=== PATIENT | male | born 1950 | race Caucasian/White ===

== ENCOUNTER → 2020-12-21 10:45 | Outpatient (BNVA) | payer MEDICARE, OTHER, SELFPAY | PROVIDERS: PCP Internal Medicine; Visit Provider Hospitalist | DX: J45.909 Unspecified asthma, uncomplicated (principal); J30.9 Allergic rhinitis, unspecified; R93.89 Abnormal findings on diagnostic imaging of other specified body structures | CPT/HCPCS: 99202 ==

== ENCOUNTER → 2022-04-24 10:54 | Outpatient (BNVA) | payer MEDICARE, SELFPAY | PROVIDERS: PCP Internal Medicine; Visit Provider Hospitalist | DX: J45.909 Unspecified asthma, uncomplicated (principal); J30.9 Allergic rhinitis, unspecified; R93.89 Abnormal findings on diagnostic imaging of other specified body structures; Z79.899 Other long term (current) drug therapy | CPT/HCPCS: 99212 ==

== ENCOUNTER 2022-10-22 11:09 | Outpatient (REF) | payer MEDICARE, SELFPAY ==
--- NOTE | ~2022-10-22 | XR_ITS ---
EXAMINATION: XR CHEST CLINICAL INFORMATION: Abnormal chest findings COMPARISON: None TECHNIQUE: 2 views of the chest were obtained. FINDINGS: The lungs are well-expanded and clear. The heart size and pulmonary vascularity is normal. There is mild spondylosis of dorsal spine. No aggressive lytic or sclerotic process seen. XR/XR chest 2V IMPRESSION: Unremarkable chest exam.
== END 2022-10-22 11:10 | disposition home or self-care (01) ==
LOC: HO.XRAY 11:09
PROVIDERS: PCP Internal Medicine; Visit Provider Hospitalist
DX: R93.89 Abnormal findings on diagnostic imaging of other specified body structures (principal); J45.909 Unspecified asthma, uncomplicated
CPT/HCPCS: 71046

== ENCOUNTER 2022-10-27 09:44 | Outpatient (REF) | payer MEDICARE, SELFPAY ==
--- NOTE | 2022-10-27 11:19 | PFT_ITS ---
Forced vital capacity 105%, FEV1 94%, FEV1 over FVC ratio is 66. ZGT12-55 69% and MVV 87%. Post bronchodilator therapy, there is no significant change. NIT28-10 is actually somewhat decreased. Total lung capacity 99%, residual volume 94%. Diffusion capacity 75%. CONCLUSION: Very mild degree of obstructive airway disorder. No positive response to bronchodilator therapy. Clinical correlation is recommended. MD HERNANDO Cheema/NIRMAL / [id number]
== END 2022-10-27 09:45 | disposition home or self-care (01) ==
LOC: HO.RESP 09:44
PROVIDERS: PCP Internal Medicine; Visit Provider Hospitalist
DX: J45.909 Unspecified asthma, uncomplicated (principal)
CPT/HCPCS: 94060; 94727; 94729; 99212

== ENCOUNTER 2023-07-30 07:27 | Day surgery (SDC) | payer MEDICARE, SELFPAY ==
--- NOTE | 2023-07-29 13:15 | HO.ANESPROP2 ---
Documented by User: Rula Lloyd NP 07/29/23 13:16 HPI - Anesthesia Eval Consult details Narrative: 72yo M for Bronchoscopy Fiberoptic PMFSH Active Problems Active Problems: All Active Problems (Updated 10/27/22 @ 20:26 by Jeff Salazar MD) Abnormal chest x-ray (Acute) Chronic allergic rhinitis (Acute) Asthma (Acute) Past Medical History Medical History Abnormal chest x-ray Chronic allergic rhinitis Asthma Surgical History Surgical History (Updated 07/30/23 @ 09:15 by Melissa Dangelo MD) Cataract Colon cancer Inguinal hernia H/O arthroscopic knee surgery Social History Social History Patient Tobacco Use Status: Former Tobacco user Tobacco use type: Cigarette Years Smoked: 20 years Second Hand Smoke Exposure: No Use of substances other than those prescribed or required for medical reasons: No Are you DNR?: No Advance Directives: No Advance Directives Information Provided: Yes Advance Directives on File: No Meds Allergies Allergy/AdvReac Type Severity Reaction Status Date / Time SAI Inhibitors Allergy Severe Rash Verified 10/27/22 11:13 celecoxib [From Celebrex] Allergy Severe Rash Verified 10/27/22 11:13 ciprofloxacin Allergy Severe Rash/Dermat Verified 10/27/22 11:13 itis/Nausea /Vomiting codeine Allergy Severe Vomiting Verified 10/27/22 11:13 doxycycline Allergy Severe Nausea and Verified 10/27/22 11:13 Vomiting lidocaine Allergy Severe Red Rash Verified 10/27/22 11:13 and Hives mold Allergy Severe Rash Verified 10/27/22 11:13 prednisone Allergy Severe Rash Verified 10/27/22 11:13 shellfish derived Allergy Severe Fever/Vomit Verified 10/27/22 11:13 ing Sulfa (Sulfonamide Allergy Severe Rash/Dermat Verified 10/27/22 11:13 Antibiotics) itis ragweed pollen Allergy Intermediate Hives Verified 10/27/22 11:13 Home Medications Medication Instructions Recorded Confirmed Last Taken Type amlodipine 5 mg tablet 5 mg PO DAILY 12/21/20 12/21/20 Unknown History cimetidine 300 mg tablet 300 mg PO QID 12/21/20 12/21/20 Unknown History cyclosporine 0.05 % eye drops in a 1 drp ophthalmic (eye) Q12H 12/21/20 12/21/20 Unknown History dropperette (Restasis) fluticasone propionate 50 1 spray intranasal BID 12/21/20 12/21/20 Unknown History mcg/actuation nasal spray,suspension montelukast 10 mg tablet 10 mg PO DAILY 12/21/20 12/21/20 Unknown History losartan 25 mg tablet 25 mg PO DAILY 10/27/22 Unknown History Exam Exam Date and Time: July 29, 2023 1315 Narrative Narrative: PFT 10/2022 CONCLUSION:? Very mild degree of obstructive airway disorder. ? No positive response to bronchodilator therapy. ? Clinical correlation is recommended. Assessment and Plan Assessment Anesthesia Assessment: Chart Reviewed Documented by User: Melissa Dangelo MD 07/30/23 09:18 PMFSH Active Problems Active Problems: All Active Problems (Updated 07/30/23 @ 08:50 by Melissa Dangelo MD) Abnormal chest x-ray (Acute) Chronic allergic rhinitis (Acute) Asthma (Acute)- daily inhaler bid ? Food aspiration Cough Past Medical History Medical History Abnormal chest x-ray Chronic allergic rhinitis Asthma Family History Family history of problems with anesthesia: No Surgical History Surgical History (Updated 07/30/23 @ 09:15 by Melissa Dangelo MD) Cataract Colon cancer Inguinal hernia H/O arthroscopic knee surgery History of Problems with Anesthesia: Yes (Traumatic experience with anesthesia as a child. Fear of anesthesia) Social History Social History Patient Tobacco Use Status: Former Tobacco user Tobacco use type: Cigarette Years Smoked: 20 years Second Hand Smoke Exposure: No Use of substances other than those prescribed or required for medical reasons: No Are you DNR?: No Advance Directives: No Advance Directives Information Provided: Yes Advance Directives on File: No Meds Allergies Allergy/AdvReac Type Severity Reaction Status Date / Time SAI Inhibitors Allergy Severe Rash Verified 10/27/22 11:13 celecoxib [From Celebrex] Allergy Severe Rash Verified 10/27/22 11:13 ciprofloxacin Allergy Severe Rash/Dermat Verified 10/27/22 11:13 itis/Nausea /Vomiting codeine Allergy Severe Vomiting Verified 10/27/22 11:13 doxycycline Allergy Severe Nausea and Verified 10/27/22 11:13 Vomiting lidocaine Allergy Severe Red Rash Verified 10/27/22 11:13 and Hives mold Allergy Severe Rash Verified 10/27/22 11:13 prednisone Allergy Severe Rash Verified 10/27/22 11:13 shellfish derived Allergy Severe Fever/Vomit Verified 10/27/22 11:13 ing Sulfa (Sulfonamide Allergy Severe Rash/Dermat Verified 10/27/22 11:13 Antibiotics) itis ragweed pollen Allergy Intermediate Hives Verified 10/27/22 11:13 Home Medications Medication Instructions Recorded Confirmed Last Taken Type amlodipine 5 mg tablet 5 mg PO DAILY 12/21/20 12/21/20 Unknown History cimetidine 300 mg tablet 300 mg PO QID 12/21/20 12/21/20 Unknown History cyclosporine 0.05 % eye drops in a 1 drp ophthalmic (eye) Q12H 12/21/20 12/21/20 Unknown History dropperette (Restasis) fluticasone propionate 50 1 spray intranasal BID 12/21/20 12/21/20 Unknown History mcg/actuation nasal spray,suspension montelukast 10 mg tablet 10 mg PO DAILY 12/21/20 12/21/20 Unknown History losartan 25 mg tablet 25 mg PO DAILY 10/27/22 Unknown History Exam Height,Weight and Vital Signs: Height 6 ft Weight 87.997 kg Vital Signs Temp Pulse Resp BP Pulse Ox O2 Del Method 07/30/23 08:13 97.4 F 83 16 154/88 H 95 Room Air Airway Mallampati Class: II TM Dist: >3cm Neck ROM: Full (but some neck pain. Sees chiropractor. No UE symptoms) Loose/Missing/Broken Teeth: No (Denies broken, loose, missing teeth) Heart: RRR Lungs: CTAB Assessment and Plan Assessment Anesthesia Assessment: Anesthesia Plan Discussed Final Anesthetic Review Family History of Problems with Anesthesia: No History of Problems with Anesthesia: Yes (Traumatic experience with anesthesia as a child. Fear of anesthesia) NPO: Yes ASA Class: II Final Preanesthetic Review: No Changes in Pt Med Stat, Meds/Allgs Chart Reviewed, Consent Obtained/Reviewed and Anes Risks/Benef Reviewed Patient Risk: Intermediate Procedure Risk: Low Assessment/Block/Sedation in SS: Assess/Block/Sedation-SS Anesthetic Plan Anesthetic Plan: GA Disposition: Standard PACU
[2023-07-30] VITALS (9 sets, daily range): BP systolic 128–158; BP diastolic 62–96; PULSE 83–113; RESP 16–28; TEMP 36.3–37.8; O2SAT 95–100; BMI 26.3
[2023-07-30] MEDS: Lactated Ringers 1,000 ML 100 ML IVCONT (08:22)
--- NOTE | 2023-07-30 09:03 | MHC.SHP ---
Pre-Procedural Eval Section A Date of Service: 07/30/23 The patient is an INPATIENT: No The History & Physical has been completed within 30 days and I have reviewed it.: No Section B Chief Complaint: Pneumonitis due to inhalation of food and vomit Details of Present Illness: 72 y/o man with recent aspiration event eating a pork loin. CT chest with ?FB in the RLL. Also with RLL pneumonia. Placed on antibiotics, still with coughing and fevers Relevant Family History (Specify if Yes): No Relevant Social History: None Present Medications: see Short Stay Collaborative assessment Medical History: Significant History History of Previous Operations: No relevant previous surgery Allergies: Allergies Allergy/AdvReac Type Severity Reaction Status Date / Time SAI Inhibitors Allergy Severe Rash Verified 10/27/22 11:13 celecoxib [From Celebrex] Allergy Severe Rash Verified 10/27/22 11:13 ciprofloxacin Allergy Severe Rash/Dermat Verified 10/27/22 11:13 itis/Nausea /Vomiting codeine Allergy Severe Vomiting Verified 10/27/22 11:13 doxycycline Allergy Severe Nausea and Verified 10/27/22 11:13 Vomiting lidocaine Allergy Severe Red Rash Verified 10/27/22 11:13 and Hives mold Allergy Severe Rash Verified 10/27/22 11:13 prednisone Allergy Severe Rash Verified 10/27/22 11:13 shellfish derived Allergy Severe Fever/Vomit Verified 10/27/22 11:13 ing Sulfa (Sulfonamide Allergy Severe Rash/Dermat Verified 10/27/22 11:13 Antibiotics) itis ragweed pollen Allergy Intermediate Hives Verified 10/27/22 11:13 Review of Systems Sugical H&P ROS: Negative: Cardiovascular, Neurological, Psychiatric, Hem-Onc, Allergic/Immunologic, Gastrointestinal, Genitourinary, Musculoskeletal and Integumentary and Yes, Specify: Constitution (fevres) and Respiratory (cough) Exam Surgical H&P Exam: Normal: HEENT, Normal: Heart, Normal: Lungs, Normal: Extremities, Normal: Abdomen, Normal: Skin and Normal: Neurological Plan Diagnosis/Plan: Change (Bronchosocpy to assess for FB aspiration and pneumonia) I have reviewed the history and physical and performed a pertinent physical examination on my patient. No changes have occurred unless specified. Time Spent With Patient Time: Total time managing care of this patient today ____ minutes.
[2023-07-30] MEDS: Albuterol Sulfate (0.083%) 2.5 MG/3 ML VIAL.NEB INHALE (10:15)
[2023-07-30] MEDS: Acetaminophen 325 MG TABLET 650 MG PO (11:37)
--- NOTE | 2023-07-30 15:59 | P.BOP_ITS ---
Brief Operative Note Date of Service: 07/30/23 Pre-op diagnosis: aspiration pneumonia Post-op diagnosis: same Procedure: Bronchoscopy with biopsy, brushings, washings Implants: Surgeon: Jeff Salazar MD Was an Corporate Representative used for this Procedure?: No Estimated blood loss (mL): 2 Pathology: other (RLL biopsies) Condition: stable Disposition: same day
--- NOTE | 2023-07-31 02:35 | OP_ITS ---
DATE OF SERVICE: 07/30/2023 SURGEON: Jeff Salazar MD PREOPERATIVE DIAGNOSIS: POSTOPERATIVE DIAGNOSIS: Aspiration pneumonia. No evidence of any residual foreign body and inflammatory changes to the right lower lobe airways and trachea likely from the traumatic event. PROCEDURE PERFORMED: ESTIMATED BLOOD LOSS: COMPLICATIONS: ANESTHESIA: General endotracheal anesthesia. ASSISTANTS: SPECIMENS: PREOPERATIVE DIAGNOSES: Aspiration event? foreign body and aspiration pneumonia. PROCEDURES PERFORMED: Bronchoscopy with biopsies, brushings, and washings. FUEL OIL TRUCK DRIVER: None. PROCEDURE IN DETAIL: After the patient was adequately sedated and intubated, the flexible digital bronchoscope was inserted via the ET tube to the level of main melissa. Patient was allergic to lidocaine, so therefore no lidocaine was used. The bronchoscope was navigated to the entire tracheobronchial tree that was examined up to the segmental level. No evidence of any foreign body documented throughout the airways. The patient did have some inflammatory changes to the trachea and also to the right lower lobe airway. Some of the inflammatory changes appear to be erythematous and slightly irregular mucosa which is likely secondary to the aspiration event, although because of the abnormality, endobronchial biopsies were collected. The biopsies weer sent in formalin for pathology. Bronchial washings were collected throughout both airways. Looking for any debris for any aspiration or foreign body. No evidence of any foreign body noted. The washings were sent for cytology and also for microbiology. A microscopic brushing was also introduced into the right lower lobe where he had the aspiration pneumonia, that was sent for microbiology for Gram stain and culture. The bronchoscope was then removed. No significant bleeding, although half an ampule of epinephrine was used at the right lower lobe to provide better hemostasis. Also hopefully to decrease some of the swelling. Tolerated the procedure well. Vital signs were stable throughout the procedure. afterwards. He also has slight temp, so therefore he was given Tylenol. Otherwise, patient is without any other complaints and no other significant findings. 2 mL of blood loss and again epinephrine was used half an ampule with good hemostasis. No complications noted. MD MEG Bae/NIRMAL / [phone]
== END 2023-07-30 12:20 | disposition home or self-care (01) ==
PROVIDERS: PCP Internal Medicine; Visit Provider Hospitalist
PROC: 0BJ08ZZ Inspection of Tracheobronchial Tree, Via Natural or Artificial Opening Endoscopic (ICD-10-PCS; CPT 31622; principal; 2023-07-30 09:10)
DX: J69.0 Pneumonitis due to inhalation of food and vomit (principal); J45.40 Moderate persistent asthma, uncomplicated; J30.9 Allergic rhinitis, unspecified; R93.89 Abnormal findings on diagnostic imaging of other specified body structures; J39.8 Other specified diseases of upper respiratory tract; Z79.51 Long term (current) use of inhaled steroids; Z88.1 Allergy status to other antibiotic agents; Z88.2 Allergy status to sulfonamides; Z88.5 Allergy status to narcotic agent; Z88.8 Allergy status to other drugs, medicaments and biological substances; Z87.891 Personal history of nicotine dependence
CPT/HCPCS: 31625; 31623; 87070; 87116; 87205; 87206; 88112; 88305; J0330; J2250; J2405

== ENCOUNTER → 2023-07-30 07:27 | Outpatient (BNV) | payer MEDICARE, SELFPAY | PROVIDERS: PCP Internal Medicine; Visit Provider Hospitalist | DX: J69.0 Pneumonitis due to inhalation of food and vomit (principal) | CPT/HCPCS: 31623; 31625 ==

== ENCOUNTER 2023-08-13 10:45 | Outpatient (AMB) | payer MEDICARE, SELFPAY ==
[2023-08-13 11:01] VITALS: BP 138/77; PULSE 92; O2SAT 97
--- NOTE | 2023-08-13 11:01 | MHC.OFFVIS ---
Intake Vital Signs 08/13/23 11:01 Weight 191 lb 12.835 oz BP 138/77 Blood Pressure Location Rt brachial Position Sitting Pulse 92 Pulse Source Doppler Pulse Oximetry (%) 97 Oxygen Delivery Method Room Air Intake Visit Reasons: bronch results Allergies SAI Inhibitors Allergy (Severe, Verified 08/13/23 11:02) Rash celecoxib [From Celebrex] Allergy (Severe, Verified 08/13/23 11:02) Rash ciprofloxacin Allergy (Severe, Verified 08/13/23 11:02) Rash/Dermatitis/Nausea/Vomiting codeine Allergy (Severe, Verified 08/13/23 11:02) Vomiting doxycycline Allergy (Severe, Verified 08/13/23 11:02) Nausea and Vomiting lidocaine Allergy (Severe, Verified 08/13/23 11:02) Red Rash and Hives mold Allergy (Severe, Verified 08/13/23 11:02) Rash prednisone Allergy (Severe, Verified 08/13/23 11:02) Rash shellfish derived Allergy (Severe, Verified 08/13/23 11:02) Fever/Vomiting Sulfa (Sulfonamide Antibiotics) Allergy (Severe, Verified 08/13/23 11:02) Rash/Dermatitis ragweed pollen Allergy (Intermediate, Verified 08/13/23 11:02) Hives HPI HPI Comments History of Present Illness Details The patient is a 72-year-old gentleman with known chronic rhinitis in addition to moderate persistent asthma. The patient has been well controlled on the Flovent. He has been using the Flovent twice a day with very good effect. He does have triggers including viral syndromes and also allergies. Usually his symptoms worsen during the fall months. He has not required any prednisone recently. Back in the fall his respiratory symptoms were worsened and he was recommended to escalate his respiratory medications. However, he was able improved with his current with dose of Flovent. On further questioning he states that he has allergies to prednisone. He has developed significant rashes both with prednisone and also hydrocortisone. We did talk about methylprednisolone as an option in the future if he develops any worsening respiratory symptoms. Will plan to have him come back in the fall when symptoms are worse and do pulmonary function studies and repeat chest x-ray. He did have a chest x-ray from last year demonstrating again a sclerotic looking 5th rib which is likely a bone island. He has had this for many years. 04/24/2022 the patient is here for a pulmonary follow-up visit. Overall the patient has been complaining of increasing chest tightness. He has been staying active. He states that now during the spring season he is has all the allergies and feeling some sinus pressure as well as the chest tightness. No significant coughing although he is clearing his throat. He is taking Singulair and continues use the Flonase in the morning and Flovent for his reactive airways. He is getting partial response. He does have a rescue inhaler that he has not use. He was also wondering about his spacer. In the office we did have him do a peak flow and then had him use his inhaler and then checked the post peak flow afterwards. He will continue checking his peak flows and using that as a gaze to see if he needs to uses rescue inhaler. In addition to that once the spring once down and his allergies are better and if his symptoms are better he can also try to decrease the amount of inhaled steroids by decreasing to 3 times a week. We talked about his allergies. He will follow up with his principal technical specialist, Dr. Mandel. In the meantime that we talked about the importance of nasal rinsing. I did recommend he get a Neti bottle and use distilled water only. He can rinse at nighttime. In addition to that he should start antihistamine [facility] can use that in the morning and continue using the singular at nighttime. His exam is otherwise normal here for prolonged expiratory phase. He said the abnormal chest x-ray for many years but with his ongoing symptoms will have him get a repeat chest x-ray at this time if the patient is no better he is to call our office otherwise to follow-up in 6 months with PFTs 10/27/2022 the patient is here for pulmonary follow-up visit. He continues to do very well. He stays active playing multiple sports. Has been using his Flovent twice a day. In addition to that he continues with Flonase for his chronic rhinitis. He has not had to use his rescue inhaler. Denies any recent exacerbations and has not required any prednisone. The patient did undergo pulmonary function studies which I personally reviewed with him. It appears that he has a mild obstructive ventilatory defect consistent with mild COPD. The patient does have what appears to be asthma COPD overlap syndrome. In addition to this the patient did not have a response to bronchodilators noted. Patient also underwent a chest x-ray demonstrating hyperinflation of the lungs without any abnormalities noted. At this point this is reassuring. Patient is overall doing well. Will plan to follow-up in a year's time. The patient develops any worsening symptoms or any concerning symptoms prior to this is to call for an earlier assessment. Main 12/12/2022 the patient is here for a pulmonary follow-up visit. The patient was status post bronchoscopy to address the questionable foreign body after he aspirated food. He had been seen at the hospital hard for we had a CT scan demonstrating what appeared to be a foreign body in the bronchus intermedius and also significant right lower lobe pneumonia. The bronchoscopy did show some inflammatory changes of the lining around the right lower lobe but the biopsies were all consistent with acute inflammation. No evidence of any malignancy. In no evidence of any foreign bodies left. He was able to clear before the bronchoscopy. He states he had 1 bout of cough where he did bring up some thick sputum with a solid contents. However he still coughing. He completed the antibiotics. His cough is overall better. He is starting to get some energy back. The patient did not do well with the Tessalon Perles. He is currently on Flovent. He does have and prolonged expiratory phase with end-expiratory wheezing. I do believe that he will do better on Advair although he is not sure because he had a bad reaction to albuterol. I explained to him that we can try half a dose and does some better all tends to be little bit more gentle than albuterol altogether. I did give him a script that he can consider filling at the pharmacy. In the meantime the patient will return about 4-6 months with a chest x-ray. If he is not any better worsens he is to call me MELISSA to further address the symptoms and issues. [facility] Medical History (Updated 08/13/23 @ 12:56 by Jeff Salazar MD) Aspiration into airway Pneumonia Abnormal chest x-ray Chronic allergic rhinitis Asthma Surgical History (Updated 07/30/23 @ 09:15 by Melissa Dangelo MD) Cataract Colon cancer Inguinal hernia H/O arthroscopic knee surgery Social History Patient Tobacco Use Status: Former Tobacco user Tobacco use type: Cigarette Years Smoked: 20 years Second Hand Smoke Exposure: No Review of Systems Const Denies night sweats ENT Denies change in voice, Denies lip swelling, Denies mouth pain, Reports nasal congestion, Denies nasal discharge, Denies sinus pressure and Denies tongue swelling Card Denies chest pain Resp Reports cough and Denies other (Chest tightness) GI Denies abdominal pain Musc Denies no additional complaints Neuro Denies Neuro-related abnormal movements Psych Denies no additional complaints James/Lymph Denies easy bleeding and Denies lymphadenopathy Aller/Immun Denies lip swelling and Denies tongue swelling Physical Exam Vital Signs: Last Vital Signs Pulse 92 08/13/23 11:01 BP 138/77 08/13/23 11:01 Pulse Ox 97 08/13/23 11:01 Oxygen Delivery Method Room Air 08/13/23 11:01 Const General: alert HEENT General nose exam: Abnormal external nose present and Nasal discharge present Eyes Pupils: Equal, round and reactive pupils present Neck Neck: Yes normal visual inspection, Yes full ROM and Yes no lymphadenopathy Chest Chest palpation & inspection: normal inspection of the chest Resp Effort & Inspection: prolonged expiratory phase Auscultation: diminished lung sounds Cardio Rate: tachycardic Rhythm: regular rhythm Heart sounds: S1 normal heart sound present and S2 normal heart sound present GI Palpation (GI): Soft to palpation and nontender Auscultation: normal bowel sounds General: Yes no CVA tenderness Back/Spine/Pelvis Back: no CVA tenderness Skin General skin exam: rashes and/or lesions noted Neuro Cranial nerves: Yes Equal, round and reactive pupils present Assessment & Plan Assessment & Plan (1) Asthma: Comment: asthma COPD overlap syndrome Code(s): J45.909 - Unspecified asthma, uncomplicated Qualifiers: Asthma complication type: uncomplicated Asthma persistence: persistent Asthma severity: moderate Qualified Code(s): J45.40 - Moderate persistent asthma, uncomplicated Plan: continue Flovent HFA Continue singulair PFTs (2) Chronic allergic rhinitis: Code(s): J30.9 - Allergic rhinitis, unspecified Plan: Astelin may be a good option for him in order to decrease the use cortical steroids. Potentially if the Astelin works he could stop using the Flonase (3) Abnormal chest x-ray: Comment: with sclerotic area on the 5th rib. has been stable for many years. Repeat CXR pending results Code(s): R93.89 - Abnormal findings on diagnostic imaging of other specified body structures Plan: repeat CXR (4) Pneumonia: Code(s): J18.9 - Pneumonia, unspecified organism Qualifiers: Pneumonia type: aspiration pneumonia Aspiration pneumonia type: unspecified Laterality: right Lung location: lower lobe of lung Qualified Code(s): J69.0 - Pneumonitis due to inhalation of food and vomit (5) Aspiration into airway: Comment: Now cleared Code(s): T17.908A - Unspecified foreign body in respiratory tract, part unspecified causing other injury, initial encounter Qualifiers: Encounter type: subsequent encounter Qualified Code(s): T17.908D - Unspecified foreign body in respiratory tract, part unspecified causing other injury, subsequent encounter Plan nasal sinus rinse with distilled water antihistamine, Zyrtec Continue singular at night stop Flovent BID start Advair HFA, 1 puff BID Short-acting beta agonist as needed repeat CXR prior to next visit Follow-up in 4-6 months Orders: Orders XR chest 2V Today R93.89 - Abnormal findings on diagnostic imaging of other specified body structures Medications: New fluticasone propion-salmeterol 230-21 mcg/actuation (Advair HFA) 2 puffs inhalation BID 30 days 12 grams 11RF Coding Level of Care Code Est Pt Level 4 (16833) Diagnoses Moderate persistent asthma without complication J45.40 Asthma complication type: uncomplicated Asthma persistence: persistent Asthma severity: moderate Chronic allergic rhinitis J30.9 Abnormal chest x-ray R93.89 Aspiration pneumonia of right lower lobe, unspecified aspiration pneumonia type J69.0 Pneumonia type: aspiration pneumonia Aspiration pneumonia type: unspecified Laterality: right Lung location: lower lobe of lung Aspiration into airway, subsequent encounter T17.908D Encounter type: subsequent encounter Time Spent (min) 18
== END 2023-08-13 11:31 | disposition home or self-care (01) ==
PROVIDERS: PCP Internal Medicine; Visit Provider Hospitalist
DX: J45.40 Moderate persistent asthma, uncomplicated (principal); J30.9 Allergic rhinitis, unspecified; R93.89 Abnormal findings on diagnostic imaging of other specified body structures; J69.0 Pneumonitis due to inhalation of food and vomit; T17.908D Unspecified foreign body in respiratory tract, part unspecified causing other injury, subsequent encounter
CPT/HCPCS: 99214

== ENCOUNTER → 2023-08-13 10:45 | Outpatient (BNVA) | payer MEDICARE, SELFPAY | PROVIDERS: PCP Internal Medicine; Visit Provider Hospitalist | DX: J45.40 Moderate persistent asthma, uncomplicated (principal); J31.0 Chronic rhinitis; J69.0 Pneumonitis due to inhalation of food and vomit; R93.89 Abnormal findings on diagnostic imaging of other specified body structures; Z87.891 Personal history of nicotine dependence | CPT/HCPCS: 99212 ==

== ENCOUNTER 2024-01-12 11:28 | Outpatient (REF) | payer MEDICARE, SELFPAY ==
--- NOTE | ~2024-01-12 | XR_ITS ---
EXAMINATION: XR CHEST CLINICAL INFORMATION: Abnormal findings on diagnostic imaging of other specified body structures. COMPARISON: 10/22/2022 TECHNIQUE: Three views of the chest. FINDINGS: There is no gross pneumothorax. Heart size is normal. Degenerative changes in the thoracic spine. Multiple small, rounded calcifications in the left upper quadrant of the abdomen are redemonstrated, possibly splenic granulomata, which could be further evaluated with ultrasound. No significant pleural effusion. No focal consolidation to suggest pneumonia. XR/XR chest 2V IMPRESSION: 1. No evidence of pneumonia. 2. Multiple small, rounded calcifications in the left upper quadrant of the abdomen are redemonstrated, possibly splenic granulomata, which could be further evaluated with ultrasound.
== END 2024-01-12 11:29 | disposition home or self-care (01) ==
LOC: HO.XRAY 11:28
PROVIDERS: PCP Internal Medicine; Visit Provider Hospitalist
DX: R93.89 Abnormal findings on diagnostic imaging of other specified body structures (principal)
CPT/HCPCS: 71046

== ENCOUNTER 2024-01-29 11:03 | Outpatient (AMB) | payer MEDICARE, SELFPAY ==
[2024-01-29 11:06] VITALS: BP 148/87; PULSE 92; O2SAT 98
--- NOTE | 2024-01-29 11:06 | MHC.OFFVIS ---
Intake Vital Signs 01/29/24 11:06 Weight 189 lb BP 148/87 H Blood Pressure Location Rt brachial Position Sitting Pulse 92 Pulse Source Doppler Pulse Oximetry (%) 98 Oxygen Delivery Method Room Air Intake Visit Reasons: copd Allergies SAI Inhibitors Allergy (Severe, Verified 08/13/23 11:02) Rash celecoxib [From Celebrex] Allergy (Severe, Verified 08/13/23 11:02) Rash ciprofloxacin Allergy (Severe, Verified 08/13/23 11:02) Rash/Dermatitis/Nausea/Vomiting codeine Allergy (Severe, Verified 08/13/23 11:02) Vomiting doxycycline Allergy (Severe, Verified 08/13/23 11:02) Nausea and Vomiting lidocaine Allergy (Severe, Verified 08/13/23 11:02) Red Rash and Hives mold Allergy (Severe, Verified 08/13/23 11:02) Rash prednisone Allergy (Severe, Verified 08/13/23 11:02) Rash shellfish derived Allergy (Severe, Verified 08/13/23 11:02) Fever/Vomiting Sulfa (Sulfonamide Antibiotics) Allergy (Severe, Verified 08/13/23 11:02) Rash/Dermatitis ragweed pollen Allergy (Intermediate, Verified 08/13/23 11:02) Hives HPI HPI Comments History of Present Illness Details The patient is a 73-year-old gentleman with known chronic rhinitis in addition to moderate persistent asthma. The patient has been well controlled on the Flovent. He has been using the Flovent twice a day with very good effect. He does have triggers including viral syndromes and also allergies. Usually his symptoms worsen during the fall months. He has not required any prednisone recently. Back in the fall his respiratory symptoms were worsened and he was recommended to escalate his respiratory medications. However, he was able improved with his current with dose of Flovent. On further questioning he states that he has allergies to prednisone. He has developed significant rashes both with prednisone and also hydrocortisone. We did talk about methylprednisolone as an option in the future if he develops any worsening respiratory symptoms. Will plan to have him come back in the fall when symptoms are worse and do pulmonary function studies and repeat chest x-ray. He did have a chest x-ray from last year demonstrating again a sclerotic looking 5th rib which is likely a bone island. He has had this for many years. 04/24/2022 the patient is here for a pulmonary follow-up visit. Overall the patient has been complaining of increasing chest tightness. He has been staying active. He states that now during the spring season he is has all the allergies and feeling some sinus pressure as well as the chest tightness. No significant coughing although he is clearing his throat. He is taking Singulair and continues use the Flonase in the morning and Flovent for his reactive airways. He is getting partial response. He does have a rescue inhaler that he has not use. He was also wondering about his spacer. In the office we did have him do a peak flow and then had him use his inhaler and then checked the post peak flow afterwards. He will continue checking his peak flows and using that as a gaze to see if he needs to uses rescue inhaler. In addition to that once the spring once down and his allergies are better and if his symptoms are better he can also try to decrease the amount of inhaled steroids by decreasing to 3 times a week. We talked about his allergies. 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 In the meantime that we talked about the importance of nasal rinsing. I did recommend he get a Neti bottle and use distilled water only. He can rinse at nighttime. In addition to that he should start antihistamine therefore I will send Zyrte to the pharmacy can use that in the morning and continue using the singular at nighttime. His exam is otherwise normal here for prolonged expiratory phase. He said the abnormal chest x-ray for many years but with his ongoing symptoms will have him get a repeat chest x-ray at this time if the patient is no better he is to call our office otherwise to follow-up in 6 months with PFTs 10/27/2022 the patient is here for pulmonary follow-up visit. He continues to do very well. He stays active playing multiple sports. Has been using his Flovent twice a day. In addition to that he continues with Flonase for his chronic rhinitis. He has not had to use his rescue inhaler. Denies any recent exacerbations and has not required any prednisone. The patient did undergo pulmonary function studies which I personally reviewed with him. It appears that he has a mild obstructive ventilatory defect consistent with mild COPD. The patient does have what appears to be asthma COPD overlap syndrome. In addition to this the patient did not have a response to bronchodilators noted. Patient also underwent a chest x-ray demonstrating hyperinflation of the lungs without any abnormalities noted. At this point this is reassuring. Patient is overall doing well. Will plan to follow-up in a year's time. The patient develops any worsening symptoms or any concerning symptoms prior to this is to call for an earlier assessment. Main 12/12/2022 the patient is here for a pulmonary follow-up visit. The patient was status post bronchoscopy to address the questionable foreign body after he aspirated food. He had been seen at the hospital hard for we had a CT scan demonstrating what appeared to be a foreign body in the bronchus intermedius and also significant right lower lobe pneumonia. The bronchoscopy did show some inflammatory changes of the lining around the right lower lobe but the biopsies were all consistent with acute inflammation. No evidence of any malignancy. In no evidence of any foreign bodies left. He was able to clear before the bronchoscopy. He states he had 1 bout of cough where he did bring up some thick sputum with a solid contents. However he still coughing. He completed the antibiotics. His cough is overall better. He is starting to get some energy back. The patient did not do well with the Tessalon Perles. He is currently on Flovent. He does have and prolonged expiratory phase with end-expiratory wheezing. I do believe that he will do better on Advair although he is not sure because he had a bad reaction to albuterol. I explained to him that we can try half a dose and does some better all tends to be little bit more gentle than albuterol altogether. I did give him a script that he can consider filling at the pharmacy. In the meantime the patient will return about 4-6 months with a chest x-ray. If he is not any better worsens he is to call me MELISSA to further address the symptoms and issues. 01/29/2024 the patient is here for pulmonary follow-up visit. Overall the patient has been doing well from a respiratory status. He did not tolerate the Advair due to adverse effects. Therefore he went back on the Flovent. The Flovent HFA he has been very effective for him for many years. He is tried multiple inhalers in the past and does not tolerate any powdered inhalers therefore very limited as far as he is inhaled cortical steroids we can use. He also does not tolerate long-acting beta agonist based on the fact that he did not tolerate the Advair. Will request a prior approval to continue her on the Flovent specially since it is work very well for him after try an error with multiple inhalers. He did have a chest x-ray which I personally reviewed. It appears that he has some splenic granulomas noted on the x-ray. On further questioning he is noted that this has been a chronic issue for him. Likely from an old infection. No evidence of any acute lung issues however. The patient has been doing well otherwise will continue Flovent and he does have his rescue inhaler that he can use as needed. Will follow-up in a year's time. [facility] Medical History (Updated 01/29/24 @ 11:17 by Jeff Salazar MD) Palpitations Aspiration into airway Pneumonia Abnormal chest x-ray Chronic allergic rhinitis Asthma Surgical History (Updated 07/30/23 @ 09:15 by Melissa Dnagelo MD) Cataract Colon cancer Inguinal hernia H/O arthroscopic knee surgery Social History Patient Tobacco Use Status: Former Tobacco user Tobacco use type: Cigarette Years Smoked: 20 years Second Hand Smoke Exposure: No Review of Systems Const Denies night sweats ENT Denies change in voice, Denies lip swelling, Denies mouth pain, Reports nasal congestion, Denies nasal discharge, Denies sinus pressure and Denies tongue swelling Card Denies chest pain Resp Reports cough and Denies other (Chest tightness) GI Denies abdominal pain Musc Denies no additional complaints Neuro Denies Neuro-related abnormal movements Psych Denies no additional complaints James/Lymph Denies easy bleeding and Denies lymphadenopathy Aller/Immun Denies lip swelling and Denies tongue swelling Physical Exam Vital Signs: Last Vital Signs Pulse 92 01/29/24 11:06 BP 148/87 H 01/29/24 11:06 Pulse Ox 98 01/29/24 11:06 Oxygen Delivery Method Room Air 01/29/24 11:06 Const General: alert HEENT General nose exam: Abnormal external nose present and Nasal discharge present Eyes Pupils: Equal, round and reactive pupils present Neck Neck: Yes normal visual inspection, Yes full ROM and Yes no lymphadenopathy Chest Chest palpation & inspection: normal inspection of the chest Resp Effort & Inspection: No prolonged expiratory phase Auscultation: clear to auscultation bilaterally Cardio Rate: tachycardic Rhythm: regular rhythm Heart sounds: S1 normal heart sound present and S2 normal heart sound present GI Palpation (GI): Soft to palpation and nontender Auscultation: normal bowel sounds General: Yes no CVA tenderness Back/Spine/Pelvis Back: no CVA tenderness Skin General skin exam: rashes and/or lesions noted Neuro Cranial nerves: Yes Equal, round and reactive pupils present Assessment & Plan Assessment & Plan (1) Asthma: Comment: asthma COPD overlap syndrome Code(s): J45.909 - Unspecified asthma, uncomplicated Qualifiers: Asthma complication type: uncomplicated Asthma persistence: persistent Asthma severity: moderate Qualified Code(s): J45.40 - Moderate persistent asthma, uncomplicated Plan: continue Flovent HFA Continue singulair PFTs (2) Chronic allergic rhinitis: Code(s): J30.9 - Allergic rhinitis, unspecified Plan: Astelin may be a good option for him in order to decrease the use cortical steroids. Potentially if the Astelin works he could stop using the Flonase (3) Palpitations: Code(s): R00.2 - Palpitations Plan nasal sinus rinse with distilled water antihistamine, Zyrtec Continue singular at night continue Flovent BID, will need a PA, does not tolerate the powdered inhalers nor LABA. stop Advair HFA, 1 puff BID Short-acting beta agonist as needed Follow-up in 10-12 months Coding Level of Care Code Est Pt Level 4 (26094) Diagnoses Moderate persistent asthma without complication J45.40 Asthma complication type: uncomplicated Asthma persistence: persistent Asthma severity: moderate Chronic allergic rhinitis J30.9 Palpitations R00.2 Time Spent (min) 17
== END 2024-01-29 11:29 | disposition home or self-care (01) ==
PROVIDERS: PCP Internal Medicine; Visit Provider Hospitalist
DX: J45.40 Moderate persistent asthma, uncomplicated (principal); J30.9 Allergic rhinitis, unspecified; R00.2 Palpitations
CPT/HCPCS: 99214

== ENCOUNTER → 2024-01-29 11:03 | Outpatient (BNVA) | payer MEDICARE, SELFPAY | PROVIDERS: PCP Internal Medicine; Visit Provider Hospitalist | DX: J45.40 Moderate persistent asthma, uncomplicated (principal); J30.9 Allergic rhinitis, unspecified; R00.2 Palpitations | CPT/HCPCS: 99212 ==

== ENCOUNTER 2024-04-25 09:38 | Outpatient (REF) | payer MEDICARE, SELFPAY ==
--- NOTE | ~2024-04-25 | XR_ITS ---
EXAMINATION: XR CHEST CLINICAL INFORMATION: Cough, unspecified COMPARISON: Chest 01/12/2024 TECHNIQUE: 2 views of the chest were obtained. FINDINGS: Mild peribronchial thickening is again seen at the lung bases. No focal consolidation, interstitial pulmonary edema or pneumothorax. No pleural effusion. No significant abnormality is noted involving the heart, mediastinum, bony thorax or soft tissues. XR/XR chest 2V IMPRESSION: No pneumonia.
== END 2024-04-25 09:39 | disposition home or self-care (01) ==
LOC: HO.XRAY 09:38
PROVIDERS: PCP Internal Medicine; Visit Provider Nurse Practitioner Family
DX: R05.9 Cough, unspecified (principal); J45.40 Moderate persistent asthma, uncomplicated; J30.9 Allergic rhinitis, unspecified
CPT/HCPCS: 71046; 99212

== ENCOUNTER 2024-04-25 09:38 | Outpatient (AMB) | payer MEDICARE, SELFPAY ==
--- NOTE | 2024-04-25 09:12 | A.OFFVIS_ITS ---
Vital Signs 04/25/24 09:41 Height 6 ft Weight 186 lb 4.65 oz BMI 25.3 BP 134/68 Blood Pressure Location Rt brachial Position Sitting Pulse 86 Pulse Source Pulse Oximeter Pulse Oximetry (%) 97 Oxygen Delivery Method Room Air Intake Visit Reasons: Ongoing cough and chest pressure. Allergies SAI Inhibitors Allergy (Severe, Verified 04/25/24 09:43) Rash celecoxib [From Celebrex] Allergy (Severe, Verified 04/25/24 09:43) Rash ciprofloxacin Allergy (Severe, Verified 04/25/24 09:43) Rash/Dermatitis/Nausea/Vomiting codeine Allergy (Severe, Verified 04/25/24 09:43) Vomiting doxycycline Allergy (Severe, Verified 04/25/24 09:43) Nausea and Vomiting lidocaine Allergy (Severe, Verified 04/25/24 09:43) Red Rash and Hives mold Allergy (Severe, Verified 04/25/24 09:43) Rash prednisone Allergy (Severe, Verified 04/25/24 09:43) Rash shellfish derived Allergy (Severe, Verified 04/25/24 09:43) Fever/Vomiting Sulfa (Sulfonamide Antibiotics) Allergy (Severe, Verified 04/25/24 09:43) Rash/Dermatitis ragweed pollen Allergy (Intermediate, Verified 04/25/24 09:43) Hives HPI HPI Ongoing cough and chest pressure.: Details: Sachin is a pleasant 73 year old male, former smoker, with underlying asthma COPD overlap syndrome and chronic rhinitis. He has been moderately controlled on Flovent, singulair, and nasal saline rinses PRN. He was evaluated at Urgent Care about one month ago, for productive cough, body aches, fevers, and nasal congestion. Covid and flu negative. He was diagnosed with bronchitis and treated with a zpak and methylprednisolone. He then called office on 04/01/24 with lingering dry cough and treated with another course of azithromycin 500 mg x 5 days and recommendations to start Mucinex DM. Today he presents for an acute visit. He continues to report dry cough, with significant post nasal drip and substernal discomfort. He denies dyspnea, wheezing, fever or chills. He newly has started a core strengthening workout for the last two weeks, which he when he began to notice discomfort. Denies any chest pain, chest discomfort with exertion, palpitations or dizziness. He reports discomfort is positional, reproducible and relieved by ibuprofen. [facility] Medical History (Updated 04/25/24 @ 10:08 by Christianne Astudillo NP) Palpitations Aspiration into airway Pneumonia Abnormal chest x-ray Chronic allergic rhinitis Asthma Surgical History (Updated 07/30/23 @ 09:15 by Melissa Dangelo MD) Cataract Colon cancer Inguinal hernia H/O arthroscopic knee surgery Social History Patient Tobacco Use Status: Former Tobacco user Tobacco use type: Cigarette Years Smoked: 20 years Second Hand Smoke Exposure: No Review of Systems Const Denies chills, Denies excessive sweating, Denies fever(s), Denies headache(s) and Denies night sweats Eyes Denies dry eyes, Denies irritation and Denies itchy eyes ENT Reports Normal hearing present, Denies headache(s), Denies nasal congestion, Denies nasal discharge and Denies sore throat Card Denies chest pain, Denies chest pain at rest, Denies chest pain with activity, Denies claudication, Denies leg edema, Denies dyspnea, Denies dyspnea on exertion, Denies orthopnea and Denies paroxysmal nocturnal dyspnea Resp Denies chest congestion, Denies excessive phlegm production, Denies pain on inspiration, Denies pain with cough, Denies dyspnea, Denies dyspnea on exertion, Denies stridor and Denies wheezing Musc Denies myalgias Neuro Reports Normal hearing present and Denies headache(s) Endo Denies excessive sweating James/Lymph Denies lymphadenopathy Aller/Immun Denies itchy eyes, Denies seasonal rhinorrhea and Denies wheezing Physical Exam Vital Signs: Last Vital Signs Pulse 86 04/25/24 09:41 BP 134/68 04/25/24 09:41 Pulse Ox 97 04/25/24 09:41 Oxygen Delivery Method Room Air 04/25/24 09:41 BMI result Body Mass Index 25.3 Const General: cooperative, healthy appearing, comfortable, no acute distress, well developed and alert Orientation/consciousness: patient oriented x3 Limitations: no limitations HEENT Head: Yes normal to inspection, Yes normocephalic and Yes atraumatic Ears: hearing grossly normal bilaterally and external ears normal Eyes General: appearance normal, both eyes and all related structures Eyelids: Yes eyelids normal Sclerae: sclerae normal EOM: EOMs intact bilaterally Neck Neck: Yes normal visual inspection and Yes no lymphadenopathy Lymphatic: no lymphadenopathy noted Chest Chest palpation & inspection: normal inspection of the chest Resp Effort & Inspection: normal respiratory effort, able to speak in complete sentences, no audible wheezes, no cough, no stridor, not tachypneic, no tripod positioning and no use of accessory muscles Auscultation: clear to auscultation bilaterally Cardio Jugular venous distension: no JVD Rate: regular rate Rhythm: regular rhythm Skin Other: warm, dry General skin exam: no rashes or lesions noted Neuro General: patient oriented x3 Cranial nerves: Yes Normal hearing present Cognition (Neuro): normal cognition Gait exam (Neuro): Normal gait present Extrem General: Yes normal to inspection, Yes capillary refill normal, Yes no clubbing, cyanosis or edema and Yes no pedal edema Psych Appearance: grossly normal and well kempt Speech and movement: Normal speech and movement present and Clear speech present Affect: normal affect Attitude: cooperative Thought process: Normal thought process present Thought content: Normal thought content present Insight: Good insight present (Psych) Judgement: Good judgement present (Psych) Assessment & Plan Assessment & Plan (1) Asthma: Comment: asthma COPD overlap syndrome Code(s): J45.909 - Unspecified asthma, uncomplicated Category: Medical Qualifiers: Asthma severity: moderate Asthma persistence: persistent Asthma complication type: uncomplicated Qualified Code(s): J45.40 - Moderate persistent asthma, uncomplicated (2) Chronic allergic rhinitis: Code(s): J30.9 - Allergic rhinitis, unspecified Category: Medical Plan Patient reports significant improvement overall but continues with dry cough with likely allergic contribution, advised to use daily antihistamine and nasal saline rinses. Offered ipratropium but patient deferred. Advised to continue Flovent. Given persistence of symptoms will send for CXR. He is aware to call if symptoms do not improve. All questions were answered and patient is in agreement of plan. Will follow up for regularly scheduled appointment with Dr. Salazar or sooner if needed. Orders: Orders XR chest 2V Today R05.9 - Cough, unspecified Medications: Discontinued cefpodoxime must administer with a meal/food Discontinued Reason: Patient Completed Course 200 mg PO Q12H 10 days 20 tabs 0RF benzonatate Discontinued Reason: Patient Completed Course 200 mg PO .BID 30 days PRN 60 caps 3RF cough nirmatrelvir-ritonavir 300 mg (150 mg x 2)-100 mg (Paxlovid) Discontinued Reason: Patient Completed Course take TWO 150 mg tablets of nirmatrelvir with ONE 100 mg tablet of ritonavir twice daily for 5 days PO 5 days 30 ea 0RF benzonatate Discontinued Reason: Patient Completed Course 200 mg PO BID 30 days PRN 30 caps 0RF cough Coding Level of Care Code Est Pt Level 4 (25963) Diagnoses Moderate persistent asthma without complication J45.40 Asthma severity: moderate Asthma persistence: persistent Asthma complication type: uncomplicated Chronic allergic rhinitis J30.9
[2024-04-25 09:41] VITALS: BP 134/68; PULSE 86; O2SAT 97; BMI 25.3
== END 2024-04-25 10:19 | disposition home or self-care (01) ==
PROVIDERS: PCP Internal Medicine; Visit Provider Nurse Practitioner Family
DX: J45.40 Moderate persistent asthma, uncomplicated (principal); J30.9 Allergic rhinitis, unspecified
CPT/HCPCS: 99214

== ENCOUNTER 2024-10-31 09:56 | Outpatient (AMB) | payer MEDICARE, SELFPAY ==
--- NOTE | 2024-10-31 08:47 | MHC.OFFVIS ---
Vital Signs 10/31/24 09:58 Height 6 ft Weight 190 lb 11.198 oz BMI 25.9 BP 152/78 H Blood Pressure Location Rt brachial Position Sitting Pulse 68 Pulse Source Pulse Oximeter Pulse Oximetry (%) 98 Oxygen Delivery Method Room Air Intake Visit Reasons: Asthma flare up Allergies SAI Inhibitors Allergy (Severe, Verified 10/31/24 10:02) Rash celecoxib [From Celebrex] Allergy (Severe, Verified 10/31/24 10:02) Rash ciprofloxacin Allergy (Severe, Verified 10/31/24 10:02) Rash/Dermatitis/Nausea/Vomiting codeine Allergy (Severe, Verified 10/31/24 10:02) Vomiting doxycycline Allergy (Severe, Verified 10/31/24 10:02) Nausea and Vomiting lidocaine Allergy (Severe, Verified 10/31/24 10:02) Red Rash and Hives mold Allergy (Severe, Verified 10/31/24 10:02) Rash prednisone Allergy (Severe, Verified 10/31/24 10:02) Rash shellfish derived Allergy (Severe, Verified 10/31/24 10:02) Fever/Vomiting Sulfa (Sulfonamide Antibiotics) Allergy (Severe, Verified 10/31/24 10:02) Rash/Dermatitis ragweed pollen Allergy (Intermediate, Verified 10/31/24 10:02) Hives HPI HPI Asthma flare up: Details: Sachin is a pleasant 73 year old male, former smoker, with underlying asthma COPD overlap syndrome and chronic rhinitis. He has been moderately controlled on Advair, singulair, and nasal saline rinses PRN.He is under the care of Dr. Salazar and presents today for an acute visit. He was evaluated at Urgent Care Thursday, after 6 days of worsening sinusitis symptoms. He was started on a zpak and prenidsone (tolerated). He reports improvements in sinus pain/pressure however continues with with difficulty expectorating, chest congestion, wheezing and dyspnea on exertion, with minimal relief with OTC medications or albuterol MDI. He denies fatigue, change in appetite, fevers or chills. He does report sick contact exposures, at a basketball game prior to the start of symptoms with 8,000 people and with similar symptoms. Of note, he reported worsening asthma symptoms after steamed apple cider vinegar which he was exposed to 5 days ago. [facility] Medical History (Updated 04/25/24 @ 10:08 by Christianne Astudillo NP) Palpitations Aspiration into airway Pneumonia Abnormal chest x-ray Chronic allergic rhinitis Asthma Surgical History (Updated 07/30/23 @ 09:15 by Melissa Dangelo MD) Cataract Colon cancer Inguinal hernia H/O arthroscopic knee surgery Social History Patient Tobacco Use Status: Former Tobacco user Tobacco use type: Cigarette Years Smoked: 20 years Second Hand Smoke Exposure: No Review of Systems Const Denies chills, Denies excessive sweating, Denies fever(s), Denies headache(s) and Denies night sweats Eyes Denies dry eyes, Denies irritation and Denies itchy eyes ENT Reports Normal hearing present and Denies headache(s) Card Denies chest pain, Denies chest pain at rest, Denies chest pain with activity, Denies claudication, Denies leg edema, Denies orthopnea and Denies paroxysmal nocturnal dyspnea Resp Denies pain on inspiration, Denies pain with cough and Denies stridor Musc Denies myalgias Neuro Reports Normal hearing present and Denies headache(s) Endo Denies excessive sweating James/Lymph Denies lymphadenopathy Aller/Immun Denies itchy eyes and Denies seasonal rhinorrhea Physical Exam Vital Signs: Last Vital Signs Pulse 68 10/31/24 09:58 BP 152/78 H 10/31/24 09:58 Pulse Ox 98 10/31/24 09:58 Oxygen Delivery Method Room Air 10/31/24 09:58 BMI result Body Mass Index 25.9 Const General: cooperative, healthy appearing, comfortable, no acute distress, well developed and alert Orientation/consciousness: patient oriented x3 Limitations: no limitations HEENT Head: Yes normal to inspection, Yes normocephalic and Yes atraumatic Ears: hearing grossly normal bilaterally and external ears normal Eyes General: appearance normal, both eyes and all related structures Eyelids: Yes eyelids normal Sclerae: sclerae normal EOM: EOMs intact bilaterally Neck Neck: Yes normal visual inspection and Yes no lymphadenopathy Lymphatic: no lymphadenopathy noted Chest Chest palpation & inspection: normal inspection of the chest Resp Other: improved with duoneb Effort & Inspection: normal respiratory effort, able to speak in complete sentences, no audible wheezes, Actively coughing (persistent dry cough throughout), no stridor, not tachypneic, no tripod positioning and no use of accessory muscles Auscultation: diminished lung sounds Cardio Jugular venous distension: no JVD Rate: regular rate Rhythm: regular rhythm Skin Other: warm, dry General skin exam: no rashes or lesions noted Neuro General: patient oriented x3 Cranial nerves: Yes Normal hearing present Cognition (Neuro): normal cognition Gait exam (Neuro): Normal gait present Extrem General: Yes normal to inspection, Yes capillary refill normal, Yes no clubbing, cyanosis or edema and Yes no pedal edema Psych Appearance: grossly normal and well kempt Speech and movement: Normal speech and movement present and Clear speech present Affect: normal affect Attitude: cooperative Thought process: Normal thought process present Thought content: Normal thought content present Insight: Good insight present (Psych) Judgement: Good judgement present (Psych) Office Procedures Nebulizer Treatment Nebulizer Treatment 61799-Iblemfjxa/MDI RX initial, or Nebulizer Subsequent Treatment Office Meds ipratropium 0.5 mg-albuterol 3 mg (2.5 mg base)/3 mL nebulization soln Performing Provider: Christianne Astudillo NP Performing Location: [facility] [place] Pulmonology Services Administered by: Romy Nuñez LPN on 10/31/24 10:34 Dose Route Admin Location Dispensed Lot Number Expiration Date [facility] It Systems Analyst Consultant 3 mL inhalation 3 mL [id number] 02/20/26 08820-045-40 [employer] Assessment & Plan Assessment & Plan (1) Asthma: Comment: asthma COPD overlap syndrome Code(s): J45.909 - Unspecified asthma, uncomplicated Category: Medical Qualifiers: Asthma complication type: uncomplicated Asthma persistence: persistent Asthma severity: moderate Qualified Code(s): J45.40 - Moderate persistent asthma, uncomplicated (2) Chronic allergic rhinitis: Code(s): J30.9 - Allergic rhinitis, unspecified Category: Medical Plan Sachin continues to report poorly controlled asthma symptoms as well as difficulty expectorating and chest congestion for the past 12 days that has been minimally changed with prednisone and a zpak, will send vantin. He is aware to call if no improvement in symptoms. Patient given nebulizer in office with moderate improvement in chest tightness and ability to inspire fully. Will prescribe nebulizer for home use with DuoNeb to use PRN. He is aware to call if symptoms do not improve. All questions were answered and patient is in agreement of plan. Will follow up for regularly scheduled appointment with Dr. Salazar or sooner if needed. Orders: Orders AMB Nebulizer Treatment Today J30.9 - Allergic rhinitis, unspecified, J45.40 - Moderate persistent asthma, uncomplicated Medications: New cefpodoxime must administer with a meal/food 200 mg PO BID 20 tabs 0RF ipratropium-albuterol 0.5 mg-3 mg(2.5 mg base)/3 mL 3 mL inhalation Q6H PRN 180 mL 0RF wheezing Discontinued cetirizine (Zyrtec) Discontinued Reason: Patient Completed Course 10 mg PO DAILY 30 days 30 tabs 6RF Coding Level of Care Code Est Pt Level 4 (05710) Diagnoses Moderate persistent asthma without complication J45.40 Asthma complication type: uncomplicated Asthma persistence: persistent Asthma severity: moderate Chronic allergic rhinitis J30.9 CPT Codes Nebulizer Treatment - Nebulizer Treatment, initial or subsequent: 36179-Tunqmztag/MDI RX initial, or Nebulizer Subsequent Treatment ([id number])
[2024-10-31 09:58] VITALS: BP 152/78; PULSE 68; O2SAT 98; BMI 25.9
--- OUTSIDE RECORDS SUMMARY | 2024-11-02 14:17 | XMS_ITS ---
Author Name [facility] Organization Unknown Results Test Name/Text Value Interpretation Date Range Source Procalcitonin SerPl-mCnc 0.12ng/mL Normal [id number] - [facility] Lactate SerPl-sCnc 1.6mmol/L Normal [id number] 0.4 - 2 [facility] Calcium SerPl-mCnc 9.3mg/dL Normal [id number] 8.5 - 10 .1 [facility] BUN SerPl-mCnc 16mg/dL Normal [id number] 7 - 18 [facility] Anion Gap3 SerPl-sCnc 7mmol/L Normal [id number] 5 - 1 5 [facility] Creat SerPl-mCnc 1.22mg/dL Normal [id number] 0.7 - 1.3 [facility] HCO3 SerPl-sCnc 28mmol/L Normal [id number] 21 - 32 [facility] Chloride SerPl-sCnc 103mmol/L Normal [id number] 98 - 10 7 [facility] eGFRcr SerPlBld CKD-EPI 2021 60mL/min/1.7 3m2 Normal [id number] - [facility] Potassium SerPl-sCnc 3.7mmol/L Normal [id number] 3.5 - 5.1 [facility] Glucose SerPl-mCnc 147mg/dL Above high normal [id number] 65 - 110 [facility] Sodium SerPl-sCnc 138mmol/L Normal [id number] 136 - 145 [facility] Monocytes # Bld Auto 1.30i5030/uL Above high normal [id number] 0 - 1 [facility] BKR WAM BASOPHIL ABSOLUTE COUNT. 0.35p3250/uL Normal [id number] 0 - 1 [facility] nRBC/100 WBC Bld Auto-Rto 0% Normal [id number] 0 - 1 [facility] Eosinophil # Bld Auto 0.84m0823/uL Normal [id number] 0 - 1 [facility] MCHC RBC Auto-mCnc 34.7g/dL Normal [id number] 31 - 36 [facility] Monocytes/leuk NFr Bld Auto 8.1% Normal [id number] 4 - 12 [facility] WBC # Bld Auto 63w1202/uL Above high normal [id number] 4 - 11 [facility] Hct VFr Bld Auto 47.2% Normal [id number] 38.5 - 50 [facility] RDW RBC Auto-Rto 13.5% Normal [id number] 11 - 15 [facility] PMV Bld Auto 10fL Normal [id number] 8 - 12 [facility] Eosinophil/leuk NFr Bld Auto 0.4% Normal [id number] 0 - 5 [facility] MCH RBC Qn Auto 31.7pg Normal [id number] 27 - 33 [facility] Basophils/leuk NFr Bld Auto 0.2% Normal [id number] 0 - 1.4 [facility] Lymphocytes # Bld Auto 1.22n9840/uL Normal [id number] 0.6 - 3.7 [facility] RBC # Bld Auto 5.17M/uL Normal [id number] 4 - 6 [facility] Neutrophils/leuk NFr Bld Auto 78.4% Above high normal [id number] 39 - 72 [facility] Imm Granulocytes # Bld Auto 0.21t9831/uL Normal [id number] 0 - 0.3 [facility] BKR WAM ABSOLUTE NEUTROPHIL COUNT. 10.38m9915/u L Above high normal [id number] 2 - 7.6 [facility] Platelet # Bld Auto 899n4262/uL Normal [id number] 150 - 420 [facility] MCV RBC Auto 91.3fL Normal [id number] 80 - 100 [facility] Lymphocytes/leuk NFr Bld Auto 12.5% Below low normal [id number] 17 - 50 [facility] Imm Granulocytes/leuk NFr Bld Auto 0.4% Normal [id number] 0 - 1 [facility] Hgb Bld-mCnc 16.4g/dL Normal [id number] 13.2 - 17.1 [facility]
== END 2024-10-31 10:49 | disposition home or self-care (01) ==
PROVIDERS: PCP Internal Medicine; Visit Provider Nurse Practitioner Family
DX: J45.40 Moderate persistent asthma, uncomplicated (principal); J30.9 Allergic rhinitis, unspecified
CPT/HCPCS: 99214

== ENCOUNTER → 2024-10-31 09:56 | Outpatient (BNVA) | payer MEDICARE, SELFPAY | PROVIDERS: PCP Internal Medicine; Visit Provider Nurse Practitioner Family | DX: J45.40 Moderate persistent asthma, uncomplicated (principal); J30.9 Allergic rhinitis, unspecified | CPT/HCPCS: 94640; 99212 ==

== ENCOUNTER 2025-02-03 07:03 | Day surgery (SDC) | payer MEDICARE, SELFPAY ==
--- NOTE | 2025-02-01 13:55 | P.CONAN_ITS ---
Documented by User: Rula Lloyd NP 02/01/25 13:55 HPI - Anesthesia Eval Consult details Narrative: 74yo M for Colonoscopy Hx aspiration pna PMFSH Active Problems Active Problems: All Active Problems Cough (Acute) Palpitations (Acute) Aspiration into airway (Acute) Pneumonia (Acute) Abnormal chest x-ray (Acute) Chronic allergic rhinitis (Acute) Asthma (Acute) Past Medical History Medical History (Updated 04/25/24 @ 10:08 by Christianne Astudillo NP) Palpitations Aspiration into airway Pneumonia Abnormal chest x-ray Chronic allergic rhinitis Asthma Family History Family history of problems with anesthesia: No Surgical History Surgical History (Updated 07/30/23 @ 09:15 by Melissa Dangelo MD) Cataract Colon cancer Inguinal hernia H/O arthroscopic knee surgery History of Problems with Anesthesia: Yes Social History Social History Patient Tobacco Use Status: Former Tobacco user Tobacco use type: Cigarette Years Smoked: 20 years Second Hand Smoke Exposure: No Use of substances other than those prescribed or required for medical reasons: No Have you been hit, kicked, punched, or otherwise hurt by someone within the past year? If so, by whom?: No Are you DNR?: No Advance Directives: No Advance Directives Information Provided: Yes Recently lost weight without trying: No Nutrition Risks: No Nutritional Risk Poor oral hygiene: No Meds Allergies Allergy/AdvReac Type Severity Reaction Status Date / Time SAI Inhibitors Allergy Severe Rash Verified 02/03/25 07:32 celecoxib [From Celebrex] Allergy Severe Rash Verified 02/03/25 07:32 ciprofloxacin Allergy Severe Rash/Dermat Verified 02/03/25 07:32 itis/Nausea /Vomiting codeine Allergy Severe Vomiting Verified 02/03/25 07:32 doxycycline Allergy Severe Nausea and Verified 02/03/25 07:32 Vomiting lidocaine Allergy Severe Red Rash Verified 02/03/25 07:32 and Hives mold Allergy Severe Rash Verified 02/03/25 07:32 prednisone Allergy Severe Rash Verified 02/03/25 07:32 shellfish derived Allergy Severe Fever/Vomit Verified 02/03/25 07:32 ing Sulfa (Sulfonamide Allergy Severe Rash/Dermat Verified 02/03/25 07:32 Antibiotics) itis ragweed pollen Allergy Intermediate Hives Verified 02/03/25 07:32 Home Medications ?Medication ?Instructions ?Recorded ?Confirmed ?Last Taken ?Type amlodipine 5 mg tablet 5 mg PO DAILY 12/21/20 02/03/25 Unknown History cimetidine 300 mg tablet 300 mg PO QID 12/21/20 02/03/25 Unknown History cyclosporine 0.05 % eye drops in a 1 drp ophthalmic (eye) Q12H 12/21/20 02/03/25 Unknown History dropperette (Restasis) fluticasone propionate 50 1 spray intranasal BID 12/21/20 02/03/25 Unknown History mcg/actuation nasal spray,suspension montelukast 10 mg tablet 10 mg PO DAILY 12/21/20 02/03/25 Unknown History losartan 25 mg tablet 25 mg PO DAILY 10/27/22 02/03/25 Unknown History Assessment and Plan Assessment Anesthesia Assessment: Chart Reviewed Final Anesthetic Review Family History of Problems with Anesthesia: No History of Problems with Anesthesia: Yes Documented by User: Jerry Starr MD 02/03/25 08:17 [facility] Past Medical History Medical History (Updated 04/25/24 @ 10:08 by Christianne Astudillo NP) Palpitations Aspiration into airway Pneumonia Abnormal chest x-ray Chronic allergic rhinitis Asthma Surgical History Surgical History (Updated 07/30/23 @ 09:15 by Melissa Dangelo MD) Cataract Colon cancer Inguinal hernia H/O arthroscopic knee surgery History of Problems with Anesthesia: No Social History Social History Patient Tobacco Use Status: Former Tobacco user Tobacco use type: Cigarette Years Smoked: 20 years Second Hand Smoke Exposure: No Use of substances other than those prescribed or required for medical reasons: No Have you been hit, kicked, punched, or otherwise hurt by someone within the past year? If so, by whom?: No Are you DNR?: No Advance Directives: No Advance Directives Information Provided: Yes Recently lost weight without trying: No Nutrition Risks: No Nutritional Risk Poor oral hygiene: No Meds Allergies Allergy/AdvReac Type Severity Reaction Status Date / Time SAI Inhibitors Allergy Severe Rash Verified 02/03/25 07:32 celecoxib [From Celebrex] Allergy Severe Rash Verified 02/03/25 07:32 ciprofloxacin Allergy Severe Rash/Dermat Verified 02/03/25 07:32 itis/Nausea /Vomiting codeine Allergy Severe Vomiting Verified 02/03/25 07:32 doxycycline Allergy Severe Nausea and Verified 02/03/25 07:32 Vomiting lidocaine Allergy Severe Red Rash Verified 02/03/25 07:32 and Hives mold Allergy Severe Rash Verified 02/03/25 07:32 prednisone Allergy Severe Rash Verified 02/03/25 07:32 shellfish derived Allergy Severe Fever/Vomit Verified 02/03/25 07:32 ing Sulfa (Sulfonamide Allergy Severe Rash/Dermat Verified 02/03/25 07:32 Antibiotics) itis ragweed pollen Allergy Intermediate Hives Verified 02/03/25 07:32 Home Medications ?Medication ?Instructions ?Recorded ?Confirmed ?Last Taken ?Type amlodipine 5 mg tablet 5 mg PO DAILY 12/21/20 02/03/25 Unknown History cimetidine 300 mg tablet 300 mg PO QID 12/21/20 02/03/25 Unknown History cyclosporine 0.05 % eye drops in a 1 drp ophthalmic (eye) Q12H 12/21/20 02/03/25 Unknown History dropperette (Restasis) fluticasone propionate 50 1 spray intranasal BID 12/21/20 02/03/25 Unknown History mcg/actuation nasal spray,suspension montelukast 10 mg tablet 10 mg PO DAILY 12/21/20 02/03/25 Unknown History losartan 25 mg tablet 25 mg PO DAILY 10/27/22 02/03/25 Unknown History Exam Airway Mallampati Class: I TM Dist: <=3cm Neck ROM: Full Loose/Missing/Broken Teeth: No Heart: ok Lungs: ok Assessment and Plan Assessment Anesthesia Assessment: Anesthesia Plan Discussed Final Anesthetic Review History of Problems with Anesthesia: No NPO: Yes ASA Class: II Final Preanesthetic Review: No Changes in Pt Med Stat, Meds/Allgs Chart Reviewed, Consent Obtained/Reviewed and Anes Risks/Benef Reviewed Patient Risk: Intermediate Procedure Risk: Low Anesthetic Plan Anesthetic Plan: MAC: and Agree w/ Assess. and Plan Disposition: Standard PACU
[2025-02-01 16:58] VITALS: BMI 25.8
[2025-02-03 07:35] VITALS: BP 167/84; PULSE 80; RESP 16; TEMP 37; O2SAT 98; BMI 24.8
[2025-02-03] MEDS: Lactated Ringers 1,000 ML 100 ML IVCONT (07:53)
--- NOTE | 2025-02-03 08:16 | MHC.SHP ---
Pre-Procedural Eval Section A - 24 Hr Update-Section A only Date of Service: 02/03/25 Section B - Complete if H&P > 30 days Chief Complaint: screening Details of Present Illness: see H&P no changes Relevant Family History (Specify if Yes): No Relevant Social History: None Present Medications: see Short Stay Collaborative assessment Medical History: No relevant PMH History of Previous Operations: No relevant previous surgery Allergies: Allergies Allergy/AdvReac Type Severity Reaction Status Date / Time SAI Inhibitors Allergy Severe Rash Verified 02/03/25 07:32 celecoxib [From Celebrex] Allergy Severe Rash Verified 02/03/25 07:32 ciprofloxacin Allergy Severe Rash/Dermat Verified 02/03/25 07:32 itis/Nausea /Vomiting codeine Allergy Severe Vomiting Verified 02/03/25 07:32 doxycycline Allergy Severe Nausea and Verified 02/03/25 07:32 Vomiting lidocaine Allergy Severe Red Rash Verified 02/03/25 07:32 and Hives mold Allergy Severe Rash Verified 02/03/25 07:32 prednisone Allergy Severe Rash Verified 02/03/25 07:32 shellfish derived Allergy Severe Fever/Vomit Verified 02/03/25 07:32 ing Sulfa (Sulfonamide Allergy Severe Rash/Dermat Verified 02/03/25 07:32 Antibiotics) itis ragweed pollen Allergy Intermediate Hives Verified 02/03/25 07:32 Review of Systems Sugical H&P ROS: Negative: Constitution, Cardiovascular, Respiratory, Neurological, Psychiatric, Hem-Onc, Allergic/Immunologic, Gastrointestinal, Genitourinary, Musculoskeletal, Integumentary, Endocrine and Eyes/Ears/Nose/Throat Exam Surgical H&P Exam: Normal: HEENT, Normal: Heart, Normal: Lungs, Normal: Extremities, Normal: Abdomen, Normal: Skin and Normal: Neurological Plan Diagnosis/Plan: Unchanged I have reviewed the history and physical and performed a pertinent physical examination on my patient. No changes have occurred unless specified. Time Spent With Patient Time: Total time managing care of this patient today ____ minutes.
--- NOTE | 2025-02-03 08:49 | P.BOP_ITS ---
Brief Operative Note Date of Service: 02/03/25 Pre-op diagnosis: screening Post-op diagnosis: same Procedure: colonoscopy Surgeon: Bradley Gomez MD Anesthesia: GLMA and MAC Was an Weatherization Field Technician used for this Procedure?: No Estimated blood loss (mL): 0 Pathology: none sent Condition: stable Disposition: PACU
[2025-02-03 08:50] VITALS: BP 91/60; PULSE 72; RESP 18; TEMP 36.4; O2SAT 94
[2025-02-03 09:05] VITALS: BP 139/81; PULSE 72; RESP 16; TEMP 36.4; O2SAT 97
--- NOTE | 2025-02-04 10:57 | OP_ITS ---
DATE OF SERVICE: 02/03/2025 SURGEON: Bradley Gomez MD INDICATIONS: Colon cancer screening and personal history of colon cancer and polyps. PREOPERATIVE DIAGNOSIS: POSTOPERATIVE DIAGNOSIS: PROCEDURE PERFORMED: Colonoscopy to the terminal ileum. ESTIMATED BLOOD LOSS: COMPLICATIONS: ANESTHESIA: Monitored anesthesia care. ASSISTANTS: SPECIMENS: DESCRIPTION OF PROCEDURE: A history and physical performed. The risks and benefits of the procedure were explained to the patient and informed consent was obtained. The patient was placed in a left lateral decubitus position. A digital rectal exam was performed and was found to be normal. The Olympus pediatric videocolonoscope was introduced into the rectum and advanced to the cecum. The cecum was identified by transillumination, palpation, identification of the ileocecal valve. Examination was performed. The scope was removed. He tolerated the procedure well and was returned to recovery area in stable condition. FINDINGS: Limited evaluation of the terminal ileum was within normal limits. There was some stool in the colon and the rectosigmoid and this included formed stool and liquid stool. Liquid stool was washed, but the formed stool could not be removed. This limited the examination for detection of small polyps. No polyps were identified. Retroflexed examination showed some internal hemorrhoids. IMPRESSION: 1. Limited colonoscopy, normal. 2. Internal hemorrhoids. RECOMMENDATIONS: 1. Follow up as needed. 2. Repeat colonoscopy could be considered in 3-5 years due to limitations of today's exam. MD LAURA Bhakta/MODL / [id number]
== END 2025-02-03 09:28 | disposition home or self-care (01) ==
PROVIDERS: PCP Internal Medicine; Visit Provider Internal Medicine Gastroenterology
PROC: 0DJD8ZZ Inspection of Lower Intestinal Tract, Via Natural or Artificial Opening Endoscopic (ICD-10-PCS; CPT 45378; principal; 2025-02-03 08:20)
DX: Z12.11 Encounter for screening for malignant neoplasm of colon (principal); Z85.038 Personal history of other malignant neoplasm of large intestine; Z86.0101 Personal history of adenomatous and serrated colon polyps; Z83.719 Family history of colon polyps, unspecified; Z92.21 Personal history of antineoplastic chemotherapy; K64.8 Other hemorrhoids; I10 Essential (primary) hypertension; I49.1 Atrial premature depolarization; J45.40 Moderate persistent asthma, uncomplicated; E78.5 Hyperlipidemia, unspecified; N40.0 Benign prostatic hyperplasia without lower urinary tract symptoms; Z79.51 Long term (current) use of inhaled steroids; Z79.899 Other long term (current) drug therapy; Z88.1 Allergy status to other antibiotic agents; Z88.2 Allergy status to sulfonamides; Z88.5 Allergy status to narcotic agent; Z88.8 Allergy status to other drugs, medicaments and biological substances; Z90.49 Acquired absence of other specified parts of digestive tract; Z98.890 Other specified postprocedural states
CPT/HCPCS: G0105; J2003; J2704

== ENCOUNTER 2025-02-23 08:48 | Outpatient (AMB) | payer MEDICARE, SELFPAY ==
[2025-02-23 08:55] VITALS: BP 140/76; PULSE 83; O2SAT 99; BMI 25.1
--- NOTE | 2025-02-23 08:55 | MHC.OFFVIS ---
Vital Signs 02/23/25 08:55 Height 6 ft Weight 185 lb 3.013 oz BMI 25.1 BP 140/76 H Blood Pressure Location Rt brachial Position Sitting Pulse 83 Pulse Source Pulse Oximeter Pulse Oximetry (%) 99 Oxygen Delivery Method Room Air Intake Visit Reasons: COPD Allergies SAI Inhibitors Allergy (Severe, Verified 02/23/25 08:57) Rash celecoxib [From Celebrex] Allergy (Severe, Verified 02/23/25 08:57) Rash ciprofloxacin Allergy (Severe, Verified 02/23/25 08:57) Rash/Dermatitis/Nausea/Vomiting codeine Allergy (Severe, Verified 02/23/25 08:57) Vomiting doxycycline Allergy (Severe, Verified 02/23/25 08:57) Nausea and Vomiting lidocaine Allergy (Severe, Verified 02/23/25 08:57) Red Rash and Hives mold Allergy (Severe, Verified 02/23/25 08:57) Rash prednisone Allergy (Severe, Verified 02/23/25 08:57) Rash shellfish derived Allergy (Severe, Verified 02/23/25 08:57) Fever/Vomiting Sulfa (Sulfonamide Antibiotics) Allergy (Severe, Verified 02/23/25 08:57) Rash/Dermatitis ragweed pollen Allergy (Intermediate, Verified 02/23/25 08:57) Hives HPI Comments Details: The patient is a 74-year-old gentleman with known chronic rhinitis in addition to moderate persistent asthma. The patient has been well controlled on the Flovent. He has been using the Flovent twice a day with very good effect. He does have triggers including viral syndromes and also allergies. Usually his symptoms worsen during the fall months. He has not required any prednisone recently. Back in the fall his respiratory symptoms were worsened and he was recommended to escalate his respiratory medications. However, he was able improved with his current with dose of Flovent. On further questioning he states that he has allergies to prednisone. He has developed significant rashes both with prednisone and also hydrocortisone. We did talk about methylprednisolone as an option in the future if he develops any worsening respiratory symptoms. Will plan to have him come back in the fall when symptoms are worse and do pulmonary function studies and repeat chest x-ray. He did have a chest x-ray from last year demonstrating again a sclerotic looking 5th rib which is likely a bone island. He has had this for many years. 04/24/2022 the patient is here for a pulmonary follow-up visit. Overall the patient has been complaining of increasing chest tightness. He has been staying active. He states that now during the spring season he is has all the allergies and feeling some sinus pressure as well as the chest tightness. No significant coughing although he is clearing his throat. He is taking Singulair and continues use the Flonase in the morning and Flovent for his reactive airways. He is getting partial response. He does have a rescue inhaler that he has not use. He was also wondering about his spacer. In the office we did have him do a peak flow and then had him use his inhaler and then checked the post peak flow afterwards. He will continue checking his peak flows and using that as a gaze to see if he needs to uses rescue inhaler. In addition to that once the spring once down and his allergies are better and if his symptoms are better he can also try to decrease the amount of inhaled steroids by decreasing to 3 times a week. We talked about his allergies. 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 Mandel. In the meantime that we talked about the importance of nasal rinsing. I did recommend he get a Neti bottle and use distilled water only. He can rinse at nighttime. In addition to that he should start antihistamine therefore [facility] can use that in the morning and continue using the singular at nighttime. His exam is otherwise normal here for prolonged expiratory phase. He said the abnormal chest x-ray for many years but with his ongoing symptoms will have him get a repeat chest x-ray at this time if the patient is no better he is to call our office otherwise to follow-up in 6 months with PFTs 10/27/2022 the patient is here for pulmonary follow-up visit. He continues to do very well. He stays active playing multiple sports. Has been using his Flovent twice a day. In addition to that he continues with Flonase for his chronic rhinitis. He has not had to use his rescue inhaler. Denies any recent exacerbations and has not required any prednisone. The patient did undergo pulmonary function studies which I personally reviewed with him. It appears that he has a mild obstructive ventilatory defect consistent with mild COPD. The patient does have what appears to be asthma COPD overlap syndrome. In addition to this the patient did not have a response to bronchodilators noted. Patient also underwent a chest x-ray demonstrating hyperinflation of the lungs without any abnormalities noted. At this point this is reassuring. Patient is overall doing well. Will plan to follow-up in a year's time. The patient develops any worsening symptoms or any concerning symptoms prior to this is to call for an earlier assessment. Main 12/12/2022 the patient is here for a pulmonary follow-up visit. The patient was status post bronchoscopy to address the questionable foreign body after he aspirated food. He had been seen at the hospital hard for we had a CT scan demonstrating what appeared to be a foreign body in the bronchus intermedius and also significant right lower lobe pneumonia. The bronchoscopy did show some inflammatory changes of the lining around the right lower lobe but the biopsies were all consistent with acute inflammation. No evidence of any malignancy. In no evidence of any foreign bodies left. He was able to clear before the bronchoscopy. He states he had 1 bout of cough where he did bring up some thick sputum with a solid contents. However he still coughing. He completed the antibiotics. His cough is overall better. He is starting to get some energy back. The patient did not do well with the Tessalon Perles. He is currently on Flovent. He does have and prolonged expiratory phase with end-expiratory wheezing. I do believe that he will do better on Advair although he is not sure because he had a bad reaction to albuterol. I explained to him that we can try half a dose and does some better all tends to be little bit more gentle than albuterol altogether. I did give him a script that he can consider filling at the pharmacy. In the meantime the patient will return about 4-6 months with a chest x-ray. If he is not any better worsens he is to call me MELISSA to further address the symptoms and issues. 01/29/2024 the patient is here for pulmonary follow-up visit. Overall the patient has been doing well from a respiratory status. He did not tolerate the Advair due to adverse effects. Therefore he went back on the Flovent. The Flovent HFA he has been very effective for him for many years. He is tried multiple inhalers in the past and does not tolerate any powdered inhalers therefore very limited as far as he is inhaled cortical steroids we can use. He also does not tolerate long-acting beta agonist based on the fact that he did not tolerate the Advair. Will request a prior approval to continue her on the Flovent specially since it is work very well for him after try an error with multiple inhalers. He did have a chest x-ray which I personally reviewed. It appears that he has some splenic granulomas noted on the x-ray. On further questioning he is noted that this has been a chronic issue for him. Likely from an old infection. No evidence of any acute lung issues however. The patient has been doing well otherwise will continue Flovent and he does have his rescue inhaler that he can use as needed. Will follow-up in a year's time. 02/23/2025 the patient is here for a pulmonary follow-up visit. Overall the patient has been doing well. He continues on the Flovent which she has been very affecting beneficial. He has been on it for many years. Right now on the generic fluticasone propionate. The only thing right now is that he has developed some hoarseness. The patient does not tolerate any powdered inhalers so therefore we are limited with the inhaled cortical steroids that we can use for him. He does gargle well when rinse after using it but explained to him that is hard to rinse deeper into his throat such as the larynx. Will try to make some changes. He is using a spacer. I provide him with a new spacer this time. The patient also underwent a colonoscopy in everything was stable. He has complaint of a upper airway cough syndrome. He does have significant allergies and he does take allergy medicine. I did provide him with the Neti bottle and taught him how to use it. He understands he can only use it with distilled water and to add the packets and to make sure the bottle states clean. Should follow the bottle instructions. He did have an x-ray back in the summer. No evidence of any acute disease. Will plan to have him follow-up in a year's time with an x-ray. She develops any worsening symptoms prior to that she will call for an earlier assessment. [facility] Medical History (Updated 04/25/24 @ 10:08 by Christianne Astudillo NP) Palpitations Aspiration into airway Pneumonia Abnormal chest x-ray Chronic allergic rhinitis Asthma Surgical History (Updated 07/30/23 @ 09:15 by Melissa Dangelo MD) Cataract Colon cancer Inguinal hernia H/O arthroscopic knee surgery Social History Patient Tobacco Use Status: Former Tobacco user Tobacco use type: Cigarette Years Smoked: 20 years Second Hand Smoke Exposure: No Review of Systems Const Denies night sweats ENT Denies change in voice, Denies lip swelling, Denies mouth pain, Reports nasal congestion, Denies nasal discharge, Denies sinus pressure and Denies tongue swelling Card Denies chest pain Resp Reports cough and Denies other (Chest tightness) GI Denies abdominal pain Musc Denies no additional complaints Neuro Denies Neuro-related abnormal movements Psych Denies no additional complaints James/Lymph Denies easy bleeding and Denies lymphadenopathy Aller/Immun Denies lip swelling and Denies tongue swelling Physical Exam Vital Signs: Last Vital Signs Pulse 83 02/23/25 08:55 BP 140/76 H 02/23/25 08:55 Pulse Ox 99 02/23/25 08:55 Oxygen Delivery Method Room Air 02/23/25 08:55 BMI result Body Mass Index 25.1 Const General: alert HEENT General nose exam: Abnormal external nose present and Nasal discharge present Eyes Pupils: Equal, round and reactive pupils present Neck Neck: Yes normal visual inspection, Yes full ROM and Yes no lymphadenopathy Chest Chest palpation & inspection: normal inspection of the chest Resp Effort & Inspection: No prolonged expiratory phase Auscultation: clear to auscultation bilaterally Cardio Rate: tachycardic Rhythm: regular rhythm Heart sounds: S1 normal heart sound present and S2 normal heart sound present GI Palpation (GI): Soft to palpation and nontender Auscultation: normal bowel sounds General: Yes no CVA tenderness Back/Spine/Pelvis Back: no CVA tenderness Skin General skin exam: rashes and/or lesions noted Neuro Cranial nerves: Yes Equal, round and reactive pupils present Assessment & Plan Assessment & Plan (1) Asthma: Comment: asthma COPD overlap syndrome Code(s): J45.909 - Unspecified asthma, uncomplicated Category: Medical Qualifiers: Asthma complication type: uncomplicated Asthma persistence: persistent Asthma severity: moderate Qualified Code(s): J45.40 - Moderate persistent asthma, uncomplicated Plan: continue Flovent HFA Continue singulair PFTs (2) Chronic allergic rhinitis: Code(s): J30.9 - Allergic rhinitis, unspecified Category: Medical Plan: Astelin may be a good option for him in order to decrease the use cortical steroids. Potentially if the Ericka works he could stop using the Flonase (3) Palpitations: Code(s): R00.2 - Palpitations Category: Medical Plan nasal sinus rinse with distilled water antihistamine, Zyrtec Continue singular at night continue Flovent BID, will need a PA, does not tolerate the powdered inhalers nor LABA. stop Advair HFA Short-acting beta agonist as needed Follow-up in 10-12 months Medications: Changed From fluticasone propionate 220 mcg/actuation (Flovent HFA) 1 puff inhalation BID 30 days 12 grams 11RF To fluticasone propionate 220 mcg/actuation 1 puff inhalation BID 3 ea 3RF 90 days Coding Level of Care Code Est Pt Level 4 (92430) Diagnoses Moderate persistent asthma without complication J45.40 Asthma complication type: uncomplicated Asthma persistence: persistent Asthma severity: moderate Chronic allergic rhinitis J30.9 Palpitations R00.2 Time Spent (min) 16
--- OUTSIDE RECORDS SUMMARY | 2025-02-23 08:56 | XMS_ITS | Clinical Summary ---
Author Organization [facility] [address] [facility] Address [address] [place] [address] Care Team Providers Care Child Care Name Role Phone Wilson Colon MD Primary Care Provider [phone] Allergies Active Allergy Reactions Criticality Noted Date Comments Herbert Inhibitors Angioedema 07/25/2023 Celecoxib Unknown 07/25/2023 Ciprofloxacin Dermatitis Low 07/25/2023 Codeine Vomiting 07/25/2023 Doxycycline Hyclate Nausea Low 07/25/2023 Lidocaine Dermatitis Low 07/25/2023 Mold Cough 07/25/2023 Penicillins Other (See Comments) Medium 07/25/2023 Unknown childhood allergy Prednisone Unknown 07/25/2023 Ragweed Pollen Cough 07/25/2023 Shellfish Derived Nausea Low 07/25/2023 Sulfa (Sulfonamide Antibiotics) Dermatitis Low 07/25/2023 Medications fluticasone propionate (FLONASE) 50 mcg/actuation nasal spray Use 1 spray in each nostril daily. Active fluticasone propionate (FLOVENT HFA) 220 mcg/actuation inhaler Inhale 1 puff into the lungs 2 (two) times daily. Active montelukast (SINGULAIR) 10 mg tablet Take 1 tablet (10 mg total) by mouth nightly. Active cimetidine (TAGAMET) 300 mg tabletIndicatio ns:heartburn Take 1.5 tablets (450 mg total) by mouth 2 (two) times daily. Active cycloSPORINE (RESTASIS) 0.05 % ophthalmic emulsion Place 1 drop into both eyes daily before breakfast. Active Social History Tobacco Use Types Packs/Day Years Used Date Smoking Tobacco: Never Assessed Sex and Gender Information Value Date Recorded Sex Assigned at Not on file Legal Sex Male 7:44 PM EDT Gender Identity Not on file Sexual Orientation Not on file Last Filed Vital Signs Vital Sign Reading Time Taken Comments Blood Pressure 140/83 07/25/2023 11:04 PM EDT Pulse 90 07/25/2023 11:04 PM EDT Temperature 37.5 ??C (99.5 ??F) 07/25/2023 11:04 PM E DT Respiratory Rate 16 07/25/2023 11:04 PM EDT Oxygen Saturation 93% 07/25/2023 11:04 PM EDT Inhaled Oxygen Concentration - - Weight 88 kg (194 lb) 07/25/2023 8:04 PM EDT Height - - Body Mass Index - - Plan of Treatment Health Maintenance Due Date Last Done Comments HIV screening 1965 Hepatitis C screening 1970 Lipid disorder screening 1992 Colon cancer screening, Colonoscopy 1997 Shingles vaccine (Shingrix) (1 of 2 - Shingrix (RZV) 2 Dose Standard Series) 2002 Pneumococcal Vaccine (50+ years) (1 of 1 - PCV) 2017 Influenza vaccine 06/23/2024 10/06/2022, , 10/06/2020, Additional history exists Covid-19 vaccine series ( season) 2024 07/18/2022, 09/10/2021, 01/19/2021 Tetanus adult (Td q 10,TDAP once) 04/13/2025 04/13/2015 Diabetes screening 07/25/2026 07/25/2023 RSV Immunization (1 - 1-dose 75+ series) 2027 Meningococcal Vaccine Aged Out No blue chase eligible based on patient's age to complete this topic Procedures Procedure Name Priority Date/Time Associated Diagnosis Comments BASIC METABOLIC PANEL STAT 07/25/2023 8:30 PM EDT from Last 3 Months or Most Recently Relevant to Health Maintenance Results * (ABNORMAL) Basic metabolic panel (07/25/2023 8:30 PM EDT) [facility] Glucose 147(H) 65 - 110 mg/dL 07/25/2023 9:03 PM [facility] Comment: Non-fasting: ??65-110 mg/dL Fasting (minimum 6 hrs): ??65-99 mg/dL BUN 16 7 - 18 mg/dL 07/25/2023 9:03 PM [facility] Creatinine 1.22 0.70 - 1.30 mg/dL 07/25/2023 9:03 PM [facility] Sodium 138 136 - 145 mmol/L 07/25/2023 9:03 PM [facility] Potassium 3.7 3.5 - 5.1 mmol/L 07/25/2023 9:03 PM [facility] Chloride 103 98 - 107 mmol/L 07/25/2023 9:03 PM [facility] CO2 28 21 - 32 mmol/L 07/25/2023 9:03 PM [facility] Anion Gap 7 5 - 15 mmol/L 07/25/2023 9:03 PM [facility] Calcium 9.3 8.5 - 10.1 mg/dL 07/25/2023 9:03 PM [facility] eGFR (Creatinine) >60 >=60 mL/min/1.7 3m2 07/25/2023 9:03 PM [facility] Comment: Values < 60 mL/min/1.73 m2 may indicate CKD if present for more than three months AND creatinine is at steady state. The eGFR provides a rough estimate of kidney function. On 07/08/22 all [facility] Clinical Labs and Epic began using a [id number] formula for estimating GFR called CKD-EPI Creatinine 2020. This equation reports eGFR based on creatinine, patient age, clinical sex, and is standardized to a body surface area of 1.73 m2. For the same creatinine, this new race-free eGFR will be lower than prior reported Black eGFR results and higher than prior Non-Black eGFR results. For further guidance, please refer to the CKD: Adult Pig Lead Melter Helper Signature pathway. Blood Venipuncture / Unknown 07/25/2023 8:30 PM EDT 07/25/2023 8:32 PM EDT us Inna [facility] BLOOD ORDERABLES Fi nal Result [facility] [address] [facility] [place] [address], [facility] [phone] from Last 3 Months or Most Recently Relevant to Health Maintenance Insurance MEDICARE MANAGED [facility] [place]IC[place] [facility] [place]ICARE MANA[place] [facility] [place] Care Teams Child Care Relationship Specialty Start Date End Date Wilson Colon MD PCP - General Internal Medicine 07/25/23
--- OUTSIDE RECORDS SUMMARY | 2025-02-23 08:56 | XMS_ITS | Patient Health Record ---
Author Organization [facility] Address [address] [place] [phone] Care Team Providers Care Regional Sales Coordinator Name Role Phone MADELEINE WHITNEY Primary Care Provider Bradley Arizmendi Jr Unavailable ALEKS HINKLE Unavailable Unavailable Allergies Allergen (clinical drug ingredient) Drug/Non Drug Allergy documented on EMR Reaction Allergy Type Onset Date Status codeine Codeine Unknown Drug Allergy Active angiotensin-converting enzyme inhibitor (FN) SAI Inhibitors Unknown Drug Allergy Acti ve ciprofloxacin Cipro Unknown Drug Allergy Act angelika celecoxib CeleBREX Unknown Drug Allergy Active doxyhyelate (uncoded) Unknown Allergy Active prednisolone prednisoLONE Unknown Drug Allergy A ctive Penicillin Unknown Drug Allergy Active Substance with sulfonamide structure and antibacterial mechanism of action (substance) Sulfa Antibiotics Unknown Drug Allergy Active Shellfish (FN) Shellfish-derived Products Unknown Drug Allergy Active Mold Unknown Allergy Active lidocaine Lidocaine Unknown Drug Allergy Active Reason For Referral No Information Medications Medication SIG (Take, Route, Frequency, Duration) Notes Start Date End Date Status Montelukast Sodium 10 MG Oral for 90 Active Fluticasone Propionate HFA 220 MCG/ACT Inhalation for 60 Active cycloSPORINE 0.05 % Ophthalmic for 90 Active Cimetidine 300 MG Oral for 90 Active MiraLax (colon prep) 8.3 ounce ((238) grams mixed with Gatorade or Crystal Light orally begin at 5:00 p.m. the day before the procedure for 1 day 09/28/2024 Active flovent HFA 1 tab Oral for 14 days Active Immunizations Vaccine Route Administration Date Status Comme nts Influenza Unknown 09/06/2024 Administered Social History Tobacco Use: Social History Observation Description Date Details (start date - stop date) Never Smoker NA - NA Tobacco Use/Smoking Question Answer Notes Patient is a nonsmoker Alcohol Screen Question Answer Notes Did you have a drink contain ing alcohol in the past year? Yes How often did you have a dri nk containing alcohol in the past year? 4 or more times a week (4 points) How many drinks did you have on a typical day when you were drinking in the past year? 1 or 2 drinks (0 point) How often did you have 6 or more drinks on one occasion in the past year? Never (0 point) Points 4 Interpretation Positive Problems Problem Type SNOMED Code ICD Code Onset Dates Problem Status W/U Status Risk Notes Problem 755705879 Colon cancer screening (Z12.11) Active confirmed Problem 610247312 Encounter for other preprocedural examination (Z01.818) Active confirmed Problem 574972268 Personal history of colon cancer (Z85.038) Active confirmed Vital Signs Temperature 98.0 degrees Fahrenheit 09/28/2024 Blood pressure diastolic 00 mm Hg 09/28/2024 Height 6 ft in 09/28/2024 Blood pressure systolic 000 mm Hg 09/28/2024 Weight 190 lb 6 oz lbs 09/28/2024 BMI 25.82 kg/m2 09/28/2024 Encounters Encounter Location Date Provider Diagnosis [facility] Outpatient [address] [place] [phone] 02/03/2025 Bradley Gomez Jr Colon cancer screening Z12.11 [facility] [address] [facility] [address] [place] [phone] 09/28/2024 Bradley Gomez Jr Encounter for other preprocedural examination Z01.818 ; Colon cancer screening Z12.11 and Personal history of colon cancer Z85.038 [facility] [address] [place] [phone] 11/17/2024 Bradley Gomez Jr Assessments Encounter Date Diagnosis (ICD Code) Assessment Notes Treatment Notes Treatment Clinical Notes Section Notes 02/03/2025 Colon cancer screening (ICD-10 - Z12.11) 09/28/2024 Colon cancer screening (ICD-10 - Z12.11) Colonoscopy material was printed We discussed colonoscopy today. We discussed risks and benefits of the procedure today. He understands these and agrees to proceed. This will be scheduled at his convenience. 09/28/2024 Encounter for other preprocedural examination (ICD-10 - Z01.818) We discussed colonoscopy today. We discussed risks and benefits of the procedure today. He understands these and agrees to proceed. This will be scheduled at his convenience. 09/28/2024 Personal history of colon cancer (ICD-10 - Z85.038) We discussed colonoscopy today. We discussed risks and benefits of the procedure today. He understands these and agrees to proceed. This will be scheduled at his convenience. Plan Of Treatment Future Test Test Name Order Date COLONOSCOPY 09/28/2024 Insurance Providers Payer Name Payer Address Payer Phone Subscriber Number Group Number Insured Name Patient Relationship to Insured Coverage Start Date Coverage End Date [facility] [address] [place] [phone] [id number] OTIS HOLLIS Self - patient is the insured Medical (General) History Medical History History ICD Code Asthma, moderate persistent Sigmoid colectomy, colon cancer, chemoth erapy with fluorouracil Colonoscopy 06/10, tubular adenoma, five- year followup Aortic root dilation, PACs, [facility], Dr. Turner Hyperlipidemia Angioedema Osteoarthritis Hypertension BPH Surgical History Surgery Date(Month/Year) right inguinal hernia 1957 Sigmoid colectomy, [facility], Dr. Sanket meyers 2003 left knee arthroscopy 2012 cataracts 2018
--- OUTSIDE RECORDS SUMMARY | 2025-02-23 08:56 | XMS_ITS | Clinical Summary ---
Author Organization [facility] [place] [address] Care Team Providers Care Refinisher Name Role Phone Wilson Colon MD Primary Care Provider [phone] Surgical History Surgery Date Site/Laterality Comments HERNIA REPAIR 1956 PROCEDURE: REPAIR INGUINAL HERNIA OTHER SURGICAL HISTORY 07/27 PROCEDURE: ---- OTHER ----; COMMENT: colon resection KNEE SURGERY 2008 approx Left PROCEDURE: HISTORICAL KNEE SURGERY CATARACT EXTRACTION PROCEDURE: HISTORICAL CATARACT REMOVAL Medical History Medical History Date Comments Cat-scratch disease childhood DX:Cat-scrat ch disease; 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, confirmed on CT scan and by Dr Breaux during inspection during colo resection, per pt Actinic keratosis, hx of DX:Acti krystal keratosis, hx of Personal history of COVID-19 09/01/2022 DX: Personal history of COVID-19; COMMENT: Tested positive on 08/21/2022 at urgent care of [place] Family History Medical History Relation Name Comments Hypertension Father Other: skin ca Father Throat cancer Father vs esophageal Breast cancer Mother Hypertension Mother Coronary artery disease Uncle Diabetes Neg Hx Relation Name Status Comments Father Mother Uncle Social History Tobacco Use Types Packs/Day Years Used Date Smoking Tobacco: Former Cigarettes Q uit: 1992 Smokeless Tobacco: Never Alcohol Use Standard Drinks/Week Comments Yes 4 (1 standard drink = 0.6 oz pur e alcohol) Sex and Gender Information Value Date Recorded Sex Assigned at Not on file Legal Sex Male 2:01 PM EST Gender Identity Not on file Sexual Orientation Not on file Obstetrics History Last Filed Vital Signs Vital Sign Reading Time Taken Comments Blood Pressure 138/80 07/05/2024 7:38 AM EDT Pulse 84 07/05/2024 7:38 AM EDT Temperature - - Respiratory Rate - - Oxygen Saturation - - Inhaled Oxygen Concentration - - Weight 85.7 kg (189 lb) 07/05/2024 7:38 AM EDT Height 182.9 cm (6') 07/05/2024 7:38 AM EDT Body Mass Index 25.63 07/05/2024 7:38 AM EDT Plan of Treatment Health Maintenance Due Date Last Done Comments Pneumococcal Vaccine: 50+ Years (1 of 2 - PCV) 1971 RSV Immunization Adult Patients (1 - Risk 60-74 years 1-dose series) 2012 Zoster Vaccines (2 of 3) 08/20/2015 06/25/2015 Abdominal Aortic Aneurysm (AAA) Screen 11/01/2022 Cholesterol Screening (Lipid Panel) 11/01/2022 Colorectal Cancer Screening: Colonoscopy 11/01/2022 Depression Screening 11/01/2022 Falls Risk Assessment 11/01/2022 Hepatitis C Screening 11/01/2022 Social Influencers of Health Screening 11/01/2022 COVID-19 Vaccine (2 - season) 2024 01/19/2021 Influenza Vaccine (#1) 2024 , 11/30/2019, 10/26/2017, Additional history exists DTaP,Tdap,and Td Vaccines (2 - Td or Tdap) 04/13/2025 04/13/2015 HIB Vaccines Aged Out No longer eligi ble based on patient's age to complete this topic HPV Vaccines Aged Out No longer eligi ble based on patient's age to complete this topic Hepatitis A Vaccines Aged Out No long er eligible based on patient's age to complete this topic Hepatitis B Vaccines Aged Out No long er eligible based on patient's age to complete this topic IPV Vaccines Aged Out No longer eligi ble based on patient's age to complete this topic MMR Vaccines Aged Out No longer eligi ble based on patient's age to complete this topic Meningococcal ACWY Vaccine Aged Out N o longer eligible based on patient's age to complete this topic Meningococcal B Vacine Aged Out No lo nger eligible based on patient's age to complete this topic RSV Immunization Patients Under 20 months Aged Out No longer eligible based on patient's age to complete this topic Varicella Vaccines Aged Out No longer eligible based on patient's age to complete this topic Care Teams Refinisher Relationship Specialty Start Date End Date Wilson Colon MD PCP - General 05/01/09
--- OUTSIDE RECORDS SUMMARY | 2025-02-23 08:56 | XMS_ITS ---
Author Organization [facility] Address [address] [place] [id number] Care Team Providers Care Jewel Waxer Name Role Phone MADELEINE WHITNEY Primary Care Provider Bradley Arizmendi Jr ALEKS HINKLE Unavailable Unavailable REASON FOR VISIT screening Encounters Encounter Location Date Provider Diagnosis [facility] [place] [facility] [address] [place] [phone] 12/06/2024 Bradley Gomez Jr Plan Of Treatment No Information Progress Notes * BUNNY, OTISDOB:1950 (74 yo M)Acc No.[id number]:12/06/2024 COLON WITH MAC Patient:?OTIS HOLLIS Provider:?Bradley Gomez MD :1950???Age:73 Y???Sex:Male Chang e:12/06/2024 Address:[address] [facility] Pcp:MADELEINE WHITNEY Subjective: * Chief Complaints: * ???1. Screening. * Medical History:? Objective: * Vitals:? Assessment: Plan: * Treatment: * * The named appointment provid er may or may not be the originator of this progress note, and it is not deemed complete until electronically signed by the appointment provider. Sign off status: Pending * Provider:?Bradley Gomez MD Date:?0 12/06/2024 Generated for Kristi thomson/Felix/eTransmitting on:?02/23/2025 08:56 AM EDT
--- OUTSIDE RECORDS SUMMARY | 2025-02-23 08:56 | XMS_ITS ---
Author Organization [facility] Address [address] [place] [address] Care Team Providers Care Soap Chipper Name Role Phone MADELEINE WHITNEY Primary Care Provider Bradley Arizmendi Jr Unavailable [phone] ALEKS HINKLE Unavailable Unavailable REASON FOR VISIT screening Encounters Encounter Location Date Provider Diagnosis [facility] [place] [facility] [address] [place] [phone] 02/03/2025 Bradley Gomez Jr Colon cancer screening Z12.11 Assessments Encounter Date Diagnosis (ICD Code) Assessment Notes Treatment Notes Treatment Clinical Notes Section Notes 02/03/2025 Colon cancer screening (ICD-10 - Z12.11) Plan Of Treatment No Information Progress Notes * OTIS HOLLISDOB:1950 (74 yo M)Acc No.[id number]:02/03/2025 COLON WITH MAC Patient:?OTIS HOLLIS Provider:?Bradley Gomez MD :1950???Age:74 Y???Sex:Male Chang e:02/03/2025 Address:[address] [place], [place] Pcp:MADELEINE WHITNEY Subjective: * Chief Complaints: * ???1. Screening. * Medical History:? Objective: * Vitals:? Assessment: * Assessment: 1.?Colon cancer screening - Z12.11 (Primary)??? Plan: * Treatment: * Procedure Codes:?54570 DIAGN OSTIC COLONOSCOPY, 0529F INTRVL 3+YRS PTS CLNSCP DOCD, 0528F RCMND FLW-UP 10 YRS DOCD, Modifiers: 1P * * The named appointment provid er may or may not be the originator of this progress note, and it is not deemed complete until electronically signed by the appointment provider. Sign off status: Pending * Provider:?Bradley Gomez MD Date:?0 02/03/2025 Generated for Kristi thomson/Felix/Edwinitting on:?02/23/2025 08:55 AM EDT
--- OUTSIDE RECORDS SUMMARY | 2025-02-23 08:56 | XMS_ITS ---
Author Organization [facility] Address [address] [place] [phone] Care Team Providers Care Sign Language Teacher Name Role Phone MADELEINE WHITNEY Primary Care Provider Bradley Arizmendi Jr ALEKS HINKLE Unavailable Unavailable REASON FOR VISIT colonoscopy Encounters Encounter Location Date Provider Diagnosis [facility] [address] [place] [phone] 11/17/2024 Bradley Gomez Jr Plan Of Treatment No Information Progress Notes * OTIS HOLLISDOB:1950 (73 yo M)Acc No.[id number]:11/17/2024 Patient:?BUNNYOTIS Cordova :1950???Age:73 Y???Sex:Male Address:[address] , [place], [address] * true * Date:? Generated for Kristi thomson/Felix/eTransmitting on:?02/23/2025 08:55 AM EDT
== END 2025-02-23 09:35 | disposition home or self-care (01) ==
LOC: HO.HPS 08:48
PROVIDERS: PCP Internal Medicine; Visit Provider Hospitalist
DX: J45.40 Moderate persistent asthma, uncomplicated (principal); J30.9 Allergic rhinitis, unspecified; R00.2 Palpitations
CPT/HCPCS: 99214

== ENCOUNTER → 2025-02-23 08:48 | Outpatient (BNVA) | payer MEDICARE, SELFPAY | PROVIDERS: PCP Internal Medicine; Visit Provider Hospitalist | DX: J45.40 Moderate persistent asthma, uncomplicated (principal); J30.9 Allergic rhinitis, unspecified; R00.2 Palpitations | CPT/HCPCS: 99212 ==